=== PATIENT | female | born 1945 | race Caucasian/White ===

== ENCOUNTER 2021-03-25 13:53 | Outpatient (REF) | payer MEDICARE, MEDICAID, SELFPAY ==
--- NOTE | ~2021-03-25 | US_ITS ---
EXAMINATION: US DIAGNOSTIC ULTRASOUND BREAST, BILATERAL CLINICAL INFORMATION: Pain. COMPARISON: Mammography of same day and studies dating back to March 04, 2009. TECHNIQUE: Ultrasound of the breast is performed with real-time navarro scale imaging and color Doppler. FINDINGS: Targeted right breast ultrasound from 3:00 to 10:00 was performed. No abnormal cystic or solid mass identified. No region of abnormal distal sound shadowing seen. No edema within the tissues identified. Targeted left breast ultrasound from the 7:00 to 11:00 position did not demonstrate any abnormal cystic or solid mass. No region of abnormal distal sound shadowing. No edematous change within the tissue. Results are discussed with the patient at time of visit. US/US breast RT limited IMPRESSION: No specific mammographic and ultrasound evidence to suggest malignancy. ASSESSMENT: BI-RADS 1: Negative RECOMMENDATION: Routine annual mammography screening due in 12 months.
--- NOTE | ~2021-03-25 | MM_ITS ---
EXAMINATION: MM DIAGNOSTIC DIGITAL BREAST TOMOSYNTHESIS, bilateral. Bilateral targeted breast ultrasound CLINICAL INFORMATION: Right lateral breast pain for 2 months. Family history of breast cancer. The lifetime risk of breast cancer based on the Tyrer-Cuzick Model is 4.8%. COMPARISON: Mammography: April 26, 2020 and studies dating back to March 04, 2009 TECHNIQUE: Digital breast tomosynthesis is performed in both the craniocaudal and mediolateral oblique views along with computer-aided detection (CAD). Synthesized 2D images are generated from the tomosynthesis. Bilateral targeted breast ultrasound performed. FINDINGS: The breasts are almost entirely fatty (ACR BI-RADS breast composition Category a). There are no significant masses, abnormal calcifications, or other abnormalities. Targeted right breast ultrasound from 3:00 to 10:00 was performed. No abnormal cystic or solid mass identified. No region of abnormal distal sound shadowing seen. No edema within the tissues identified. Targeted left breast ultrasound from the 7:00 to 11:00 position did not demonstrate any abnormal cystic or solid mass. No region of abnormal distal sound shadowing. No edematous change within the tissue. Results are discussed with the patient at time of visit. MM/MM tomosynthesis diagnostic BI IMPRESSION: No specific mammographic and ultrasound evidence to suggest malignancy. ASSESSMENT: BI-RADS 1: Negative RECOMMENDATION: Routine annual mammography screening due in 12 months. This patient's information was entered into a reminder system with a target due date for their next mammogram.
--- NOTE | ~2021-03-25 | US_ITS ---
EXAMINATION: US DIAGNOSTIC ULTRASOUND BREAST, BILATERAL CLINICAL INFORMATION: Pain. COMPARISON: Mammography of same day and studies dating back to March 04, 2009. TECHNIQUE: Ultrasound of the breast is performed with real-time navarro scale imaging and color Doppler. FINDINGS: Targeted right breast ultrasound from 3:00 to 10:00 was performed. No abnormal cystic or solid mass identified. No region of abnormal distal sound shadowing seen. No edema within the tissues identified. Targeted left breast ultrasound from the 7:00 to 11:00 position did not demonstrate any abnormal cystic or solid mass. No region of abnormal distal sound shadowing. No edematous change within the tissue. Results are discussed with the patient at time of visit. US/US breast LT limited IMPRESSION: No specific mammographic and ultrasound evidence to suggest malignancy. ASSESSMENT: BI-RADS 1: Negative RECOMMENDATION: Routine annual mammography screening due in 12 months. .
== END 2021-03-25 13:54 | disposition home or self-care (01) ==
LOC: HO.MAMMO 13:53
PROVIDERS: PCP Family Medicine; Visit Provider Family Medicine
DX: N64.4 Mastodynia (principal)
CPT/HCPCS: 76642; 77062; 77066

== ENCOUNTER 2021-09-06 10:59 | Outpatient (REF) | payer MEDICARE, MEDICAID, SELFPAY ==
--- NOTE | ~2021-09-06 | MM_ITS ---
EXAMINATION: BONE DENSITOMETRY CLINICAL INDICATION: Osteoporosis. COMPARISON: Previous BD dated 08/06/2019 and baseline BD dated 01/29/2008. TECHNIQUE: Using a [employer] DXA System (software version: 13.1) manufactured by [employer], dual-energy x-ray absorptiometry was performed of the lumbar spine and left hip. The images are of good technical quality. Summary results are attached. FINDINGS: AP SPINE L1-L2 (excluding L3 and L4): The data of L1-L4 has been changed to exclude the L3 and L4 vertebral bodies, because hardware at these levels may cause overestimation of lumbar spine density. Current: BMD 0.654 g/cm2, Z-score -1.9, T-score -4.3, osteoporosis, 3.0% decrease from previous, 8.9% decrease from baseline (<5% change is not significant). Prior: BMD 0.674 g/cm2. Baseline: BMD 0.718 g/cm2. LEFT FEMUR, NECK: Current: BMD 0.595 g/cm2, Z-score -0.8, T-score -3.2, osteoporosis. Prior: BMD 0.736 g/cm2. Baseline: BMD 0.725 g/cm2. LEFT FEMUR, TOTAL: Current: BMD 0.643 g/cm2, Z-score -0.7, T-score -2.9, osteoporosis, 21.5% decrease from previous, 24.1% decrease from baseline (<5% change is not significant). Prior: BMD 0.819 g/cm2. Baseline: BMD 0.847 g/cm2. IDENTIFIED RISK FACTORS: Osteoporosis, height loss, history of fracture (adult). Hysterectomy, bilateral oophorectomy. Early menopause, secondary osteoporosis. HISTORY OF FRACTURE: Spine, shoulder. MEDICATIONS: Calcium supplements or multivitamin, vitamin D, calcitonin. MM/XR DEXA axial skeleton IMPRESSION: 1. DIAGNOSIS: Osteoporosis based on the lowest T-score value of -4.3 in the lumbar spine applying World Health Organization criteria. 2. 10-YEAR FRACTURE RISK PREDICTION, FRAX: According to the guidelines, FRAX calculation should only be performed on patients in the osteopenia bone density category. Therefore, FRAX was not performed on this patient. 3. Treatment Recommendations: NOF guidelines recommend consideration for treatment in postmenopausal women and men age 50 and older presenting with the following: -A hip or vertebral (clinical or morphometric) fracture. -T-score less than or equal to -2.5 at the femoral neck or spine after appropriate evaluation to exclude secondary causes. -Low bone mass at the hip or spine and a 10-year fracture probability by FRAX of greater than or equal to 3% for hip fracture or greater than or equal to 20% for major osteoporotic fracture based on the [place] adapted WHO algorithm. 4. Other Recommendations: All treatment decisions require clinical judgment and consideration of individual patient factors, including patient preferences, comorbidities, previous drug use, risk factors not captured in the FRAX model (e.g. frailty, falls, vitamin D deficiency, increased bone turnover, interval significant decline in bone density) and possible under or overestimation of fracture risk by FRAX. Additional medical evaluation for secondary cause of low bone mineral density may be appropriate. FUTURE SCAN RECOMMENDATION: People with diagnosed cases of osteoporosis or at high risk for fracture should have regular bone mineral density tests. For patients eligible for Medicare, routine testing is allowed once every 2 years. The testing frequency can be increased to one year for patients who have rapidly progressing disease, those who are receiving or discontinuing medical therapy to restore bone mass, or have additional risk factors.
== END 2021-09-06 11:00 | disposition home or self-care (01) ==
LOC: HO.MAMMO 10:59
PROVIDERS: PCP Family Medicine; Visit Provider Family Medicine
DX: Z13.820 Encounter for screening for osteoporosis (principal); Z78.0 Asymptomatic menopausal state; M81.0 Age-related osteoporosis without current pathological fracture; Z79.899 Other long term (current) drug therapy; Z87.81 Personal history of (healed) traumatic fracture
CPT/HCPCS: 77080

== ENCOUNTER 2022-04-05 11:11 | Outpatient (REF) | payer MEDICARE, MEDICAID, SELFPAY ==
--- NOTE | ~2022-04-05 | MM_ITS ---
EXAMINATION: MM SCREENING DIGITAL BREAST TOMOSYNTHESIS, BILATERAL CLINICAL INFORMATION: Screening. Asymptomatic. The lifetime risk of breast cancer based on the Tyrer-Cuzick Model is 6%. COMPARISON: Mammography: 03/25/2021, 04/26/2020, 04/21/2019 TECHNIQUE: Digital breast tomosynthesis is performed in both the craniocaudal and mediolateral oblique views along with computer-aided detection (CAD). Synthesized 2D images are generated from the tomosynthesis. FINDINGS: There are scattered areas of fibroglandular density (ACR BI-RADS breast composition Category b). There are no significant masses, abnormal calcifications, or other abnormalities. Parenchymal pattern is similar to prior studies. Breast tissue composition borders on predominantly fatty with exception of the anterior breasts. There is no developing density or architectural abnormality. The axilla and skin contours are unremarkable. No significant changes. MM/MM tomosynthesis screening BI IMPRESSION: No mammographic evidence of malignancy. ASSESSMENT: BI-RADS 1: Negative RECOMMENDATION: Routine annual mammography screening. This patient's information was entered into a reminder system with a target due date for their next mammogram.
== END 2022-04-05 11:12 | disposition home or self-care (01) ==
LOC: HO.MAMMO 11:11
PROVIDERS: Visit Provider Family Medicine
DX: Z12.31 Encounter for screening mammogram for malignant neoplasm of breast (principal)
CPT/HCPCS: 77063; 77067

== ENCOUNTER 2023-04-18 11:01 | Outpatient (REF) | payer MEDICARE, MEDICAID, SELFPAY | END 2023-04-18 11:02 | disposition home or self-care (01) | LOC: HO.MAMMO 11:01 | PROVIDERS: PCP Family Medicine; Visit Provider Family Medicine | DX: Z12.31 Encounter for screening mammogram for malignant neoplasm of breast (principal) | CPT/HCPCS: 77063; 77067 ==

== ENCOUNTER → 2023-04-18 11:15 | Outpatient (BNV) | payer MEDICARE, MEDICAID, SELFPAY | PROVIDERS: PCP Family Medicine; Visit Provider Radiology Diagnostic Radiology | DX: Z12.31 Encounter for screening mammogram for malignant neoplasm of breast (principal) | CPT/HCPCS: 77063; 77067 ==

== ENCOUNTER 2024-04-24 12:21 | Outpatient (REF) | payer MEDICARE, MEDICAID, SELFPAY ==
--- NOTE | ~2024-04-24 | MM_ITS ---
EXAMINATION: BONE DENSITOMETRY CLINICAL INDICATION: Osteoporosis. COMPARISON: Previous BD dated 09/06/2021 and baseline BD dated 01/29/2008. TECHNIQUE: Using a [employer] DXA System (software version: 13.1) manufactured by [employer], dual-energy x-ray absorptiometry was performed of the lumbar spine and left hip. The images are of good technical quality. Summary results are attached. FINDINGS: LEFT FEMUR, NECK: Current: BMD 0.614 g/cm2, Z-score -0.5, T-score -3.0, osteoporosis. Prior: BMD 0.595 g/cm2. Baseline: BMD 0.725 g/cm2. LEFT FEMUR, TOTAL: Current: BMD 0.738 g/cm2, Z-score 0.3, T-score -2.1, osteopenia, 14.8% increase from previous, 12.9% decrease from baseline (<5% change is not significant). Prior: BMD 0.643 g/cm2. Baseline: BMD 0.847 g/cm2. AP SPINE L1-L2 (excluding L3 and L4): The data of L1-L4 has been changed to exclude the L3 and L4 vertebral bodies, because hardware at these levels may cause overestimation of lumbar spine density. Current: BMD 0.619 g/cm2, Z-score -2.1, T-score -4.6, osteoporosis, 5.4% decrease from previous, 13.8% decrease from baseline (<5% change is not significant). Prior: BMD 0.654 g/cm2. Baseline: BMD 0.718 g/cm2. IDENTIFIED RISK FACTORS: Early menopause, secondary osteoporosis, hysterectomy, bilateral oophorectomy, osteoporosis, low calcium intake, history of fracture (adult), height loss. HISTORY OF FRACTURE: Shoulder. Spine. Other. MEDICATIONS: Calcium supplements or multivitamin, vitamin D, bisphosphonates. MM/XR DEXA axial skeleton IMPRESSION: 1. DIAGNOSIS: Severe osteoporosis based on the lowest T-score value of -4.6 in the lumbar spine and history of fracture applying World Health Organization criteria. 2. 10-YEAR FRACTURE RISK PREDICTION, FRAX: According to the guidelines, FRAX calculation should only be performed on patients in the osteopenia bone density category. Therefore, FRAX was not performed on this patient. 3. Treatment Recommendations: NOF guidelines recommend consideration for treatment in postmenopausal women and men age 50 and older presenting with the following: -A hip or vertebral (clinical or morphometric) fracture. -T-score less than or equal to -2.5 at the femoral neck or spine after appropriate evaluation to exclude secondary causes. -Low bone mass at the hip or spine and a 10-year fracture probability by FRAX of greater than or equal to 3% for hip fracture or greater than or equal to 20% for major osteoporotic fracture based on the [place] adapted WHO algorithm. 4. Other Recommendations: All treatment decisions require clinical judgment and consideration of individual patient factors, including patient preferences, comorbidities, previous drug use, risk factors not captured in the FRAX model (e.g. frailty, falls, vitamin D deficiency, increased bone turnover, interval significant decline in bone density) and possible under or overestimation of fracture risk by FRAX. Additional medical evaluation for secondary cause of low bone mineral density may be appropriate. FUTURE SCAN RECOMMENDATION: People with diagnosed cases of osteoporosis or at high risk for fracture should have regular bone mineral density tests. For patients eligible for Medicare, routine testing is allowed once every 2 years. The testing frequency can be increased to one year for patients who have rapidly progressing disease, those who are receiving or discontinuing medical therapy to restore bone mass, or have additional risk factors. Electronically signed by: Celeste Lang MD 05/06/2024 08:58 AM EDT
--- NOTE | ~2024-04-24 | MM_ITS ---
EXAMINATION: MM SCREENING DIGITAL BREAST TOMOSYNTHESIS, BILATERAL CLINICAL INFORMATION: Screening. Asymptomatic. COMPARISON: Mammography: Comparison is made with available priors TECHNIQUE: Digital breast mammography with tomosynthesis is performed in both the craniocaudal and mediolateral oblique views along with computer-aided detection (CAD). FINDINGS: There are scattered areas of fibroglandular density (ACR BI-RADS breast composition Category b). There are no significant masses, abnormal calcifications, or other abnormalities. MM/MM tomosynthesis screening BI IMPRESSION: No mammographic evidence of malignancy. ASSESSMENT: BI-RADS BI-RADS 1 - Negative RECOMMENDATION: Routine annual mammography screening. 1 year F/U This examination should not preclude the clinical evaluation of a suspicious palpable abnormality. This patient's information was entered into a reminder system with a target due date for their next mammogram. Electronically signed by: Jasmin Medina DO 05/06/2024 05:50 PM EDT
== END 2024-04-24 12:22 | disposition home or self-care (01) ==
LOC: HO.MAMMO 12:21
PROVIDERS: PCP Family Medicine; Visit Provider Family Medicine
DX: Z12.31 Encounter for screening mammogram for malignant neoplasm of breast (principal); M81.0 Age-related osteoporosis without current pathological fracture
CPT/HCPCS: 77063; 77067; 77080

== ENCOUNTER → 2024-04-24 12:45 | Outpatient (BNV) | payer MEDICARE, MEDICAID, SELFPAY | PROVIDERS: PCP Family Medicine; Visit Provider Internal Medicine | DX: Z12.31 Encounter for screening mammogram for malignant neoplasm of breast (principal) | CPT/HCPCS: 77063; 77067 ==

== ENCOUNTER 2024-05-16 18:18 | Emergency (ER) | payer MEDICARE, MEDICAID, SELFPAY ==
[2024-05-16] VITALS (7 sets, daily range): BP systolic 105–177; BP diastolic 42–76; PULSE 66–88; RESP 14–18; TEMP 36.6–37.1; O2SAT 96–98; BMI 18.9
--- NOTE | ~2024-05-16 | CT_ITS ---
EXAMINATION: CT ANGIOGRAM NECK AND NECK CLINICAL INFORMATION: Dizziness. COMPARISON: None available. TECHNIQUE: Precontrast noncontrast CT scan of the head obtained. Sequential axial contrast enhanced CT angiographic images of the neck and head. Sagittal and coronal reformatted images also obtained. The degree of stenosis determined by NASCET criteria. This CT examination was performed using dose optimization techniques as appropriate, variously including the following: *Automated exposure control *Adjustment of mA and/or kV according to patient size (this includes techniques or standardized protocols for targeted exams where dose is matched to indication/reason for exam; i.e. extremities or head) *Use of iterative reconstruction technique DLP: 1029 mGy-cm FINDINGS: CT HEAD: The lateral, third and fourth ventricles are normally outlined. The cortical sulci and basal cisterns are normally outlined as well. There is no acute territorial defect, hemorrhage or midline shift. There are surgical is seen along the anterior cerebral arteries. Calvarium/scalp: Intact. Maxillofacial sinuses and mastoids: Clear as visualized. CTA NECK: The visualized aortic arch is within normal limits. A three-vessel branch pattern from the aortic arch is noted. The aortic arch branch vessels are patent. Common carotid arteries are patent. There is mild atherosclerotic plaque of the carotid bifurcation without significant narrowing. The internal and external carotid arteries are patent. The vertebral arteries are codominant. Both vertebral arteries are patent. CTA HEAD: There is mild atherosclerotic plaque of the intracranial internal carotid arteries without significant narrowing. The anterior and middle cerebral arteries are patent. The distal vertebral arteries, basilar artery and branches and posterior cerebral arteries are patent. 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 Cervical disc degenerative change with reversal of the expected cervical spine curvature. CT/CT angio head neck IMPRESSION: 1. No acute territorial infarct or hemorrhage. 2. No large vessel occlusion. 3. 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 Electronically signed by: Abraham Adan MD 05/17/2024 01:57 AM EDT
[2024-05-16 18:27] LABS: Prothrombin Time Whole Bld POC 10.7 sec (11.1-13.5); ~PT, ~INR - Anti Coag Clinic 0.9 (0.9-1.1)
[2024-05-16 18:29] LABS: Glucose, Whole Blood 99 mg/dL (60-115)
--- NOTE | 2024-05-16 18:29 | ECG_ITS ---
Test Reason : DIZZINESS Blood Pressure : / mmHG Vent. Rate : 071 BPM Atrial Rate : 071 BPM P-R Int : 172 ms QRS Dur : 090 ms QT Int : 402 ms P-R-T Axes : 061 -45 027 degrees QTc Int : 436 ms Normal sinus rhythm Left anterior fascicular block Possible Lateral infarct , age undetermined Abnormal ECG When compared with ECG of 28-MAR-2006 17:46, Borderline criteria for Lateral infarct are now Present Referred By: Courtney Claudio Electronically Signed By:KEYUR JOHNSTON
--- NOTE | 2024-05-16 18:31 | PC.NURSE ---
Per Remy Claudio MD, pt. is not a stroke protocol.
--- NOTE | 2024-05-16 18:31 | PC.NURSE ---
Pt. now in room ED 6
--- NOTE | 2024-05-16 18:35 | PC.NURSE ---
Pt. reports that she has not eaten all day. POC = 99
--- NOTE | 2024-05-16 18:41 | ED.NEUROSD ---
HPI - Neuro Symptoms/Deficit General Chief Complaint: Neuro Symptoms/Deficit Stated Complaint: INCREASED CONFUSION Time Seen by Provider: 05/16/24 18:28 Source: patient and EMS Mode of arrival: EMS Limitations: no limitations History of Present Illness ED Provider: Dr. Courtney Claudio HPI Narrative: Patient comes to the emergency room reporting that she has been having dizziness intermittently for couple of days. Patient states that about 1 hour prior to arrival, patient noted that the room was spinning, patient felt a bit confused, had trouble finding words, it self-resolved. By the time that EMS arrived to the patient's residence, patient had no neurological deficits. Here in the ED, patient states that she does not feel quite right, states that she has numbness tingling ?from head to toe? on both sides, denies any chest pain or shortness of breath, no headache. Patient is speaking with clear normal speech. Patient states that recently she was prescribed oxycodone for sciatica pain, started 3 days ago. Related Data Allergies Allergy/AdvReac Type Severity Reaction Status Date / Time aspirin [Aspirin] Allergy Mild NAUSEA Verified 05/16/24 18:26 VOMITING duloxetine [From CYMBALTA] Allergy Unknown UNKNOWN Verified 05/16/24 18:26 hydrocodone [HYDROCODONE] Allergy Unknown UNKNOWN Verified 05/16/24 18:26 metaxalone [METAXALONE] Allergy Unknown UNKNOWN Verified 05/16/24 18:26 pregabalin [From LYRICA] Allergy Unknown UNKNOWN Verified 05/16/24 18:26 gabapentin [GABAPENTIN] AdvReac Intermediate DROWSY Verified 05/16/24 18:26 ibuprofen [IBUPROFEN] AdvReac Intermediate NAUSEA/VOMI Verified 05/16/24 18:26 TING Review of Systems Review of Systems: Constitutional : No Weight loss, No Fever, No Chills, No Night Sweats, No Fatigue, No Malaise ENT/Mouth : No Hearing loss, No Ear Pain, No Nasal Congestion, No Sinus Pain, No Hoarseness, No sore throat, No Rhinorrhea, No Swallowing Difficulty Eyes: No Eye Pain, No Swelling, No Redness, No Foreign Body, No Discharge, No Vision Changes Cardiovascular : No Chest Pain, No SOB, No Dyspnea on Exertion, No Orthopnea, No Edema, No Palpitations Respiratory : No Cough, No Sputum, No Wheezing, No Smoke Exposure, No Dyspnea Gastrointestinal : No Nausea, No Vomiting, No Diarrhea, No Constipation, No abdominal Pain, No Hematochezia, No Melena Genitourinary : no irregular bleeding, No Dysuria, No Urinary Frequency, No Hematuria, No Urinary Incontinence, No Urgency, No Flank Pain, No Urinary Flow Changes, No Hesitancy Musculoskeletal : No joint pain, No Myalgias, No Joint Swelling Skin : No Skin Lesions, No rash Neuro : No Weakness, No Numbness, No Paresthesias, No Loss of Consciousness, complaining of dizziness/room spinning intermittently, not at this time, complaining of numbness and tingling from head to toe on both sides Psych : No Anxiety/Panic, No Depression, No SI/HI/AH/VH, No Social Issues, Heme/Lymph: No Bruising, No Bleeding,No Lymphadenopathy Endocrine : No Polyuria, No Polydipsia, No Temperature Intolerance [facility] Past Medical History Medical History (Updated 05/17/24 @ 01:42 by Courtney Claudio MD) Sciatica Social History Social History Smoked in Last 30 Days: No Use of substances other than those prescribed or required for medical reasons: No Advance Directives: No Advance Directives Information Provided: Yes Physical Exam Vital Signs: Vital Signs: Last Vital Signs Temp 98.6 F 05/16/24 23:23 Pulse 75 05/16/24 23:23 Resp 14 05/16/24 23:23 BP 105/55 L 05/16/24 23:23 Pulse Ox 98 05/16/24 23:23 O2 Del Method Room Air 05/16/24 23:23 BMI result Body Mass Index 18.9 Const: Other: Appearance: Alert. Oriented X3. No acute distress. Eyes: Pupils equal, round and reactive to light. ENT: Pharynx normal. Neck: Normal inspection. Neck supple. No lymph nodes noted. No crepitus CVS: Normal heart rate and rhythm. Pulses normal. Normal S1 and S2 Respiratory: No respiratory distress. Breath sounds normal. No Wheezing. No rales Abdomen: Soft and nontender. No rigidity. No distention. Skin: Skin warm and dry. Normal skin color. Normal skin turgor. Extremities: No lower extremity edema. No Lacerations. No Rash Neuro: Oriented X 3. No motor deficit. No sensory deficit. Moving all extremities. No slurred speech. CN 2 through 12 grossly intact, strength 5/5 in both upper and lower extremities, no mouth drooping, no drift Psych: calm, cooperative, normal affect Course Course Course Narrative: -at this time of arrival, patient's NIH score is 0. Patient denies any dizziness chest pain or shortness of breath. No focal deficit. -all of patient's labs pending, CT scan pending. It is possible that patient has symptoms are likely secondary to oxycodone which is a new medication for the patient. Medications Administered Discontinued Medications Generic Name Dose Route Start Last Admin Trade Name Javier PRN Reason Stop Dose Admin Iohexol 65 ml 05/16/24 20:03 05/16/24 20:03 Iohexol 350 Mg/Ml 100 Ml Infus..Btl IV 05/16/24 20:04 65 ml ONCE ONE Administration Medical Decision Making Medical Decision Making [facility] Narrative: -my interpretation of labs, normal hematology, normal chemistry, troponins negative, LFTs normal urinalysis negative for UTI, urine toxicology positive for oxycodone which she gets prescribed and marijuana. ETOH negative. -CTA of the head and neck pending -patient was able to ambulate by herself without any assistance with steady gait. -at this time, 01:45, patient's CTA has not been read by Radiology yet. -my interpretation of CT scan of the head and neck, no obvious abnormality. -radiology report, aneurysm coils are seen, no large vessel occlusion or territorial infarct or hemorrhage -patient's urinalysis positive for oxycodone which she gets prescribed, and also positive for THC. Patient is surprised that she tested positive for THC. However, patient states that earlier today a friend of hers gave her a gummy telling her that she would feel better. However, patient was not aware that this was THC. This is the 1st time and quite possibly the last time that the patient uses THC gummies. Patient states that she feels almost back to baseline -patient's daughter will be picking her up and taking her for overnight Differential Diagnosis Differential Diagnoses: The differential diagnosis associated with the presentation includes (Stroke, vertigo, medication side-effect) Admission/Observation Consideration of admission/observation: Escalation of care including admission/observation considered (Given patient's initial symptoms and presentation, observation/admission was considered) Lab Data [facility] Lab Attestation statement: I reviewed the patient's lab results. 05/16/24 18:53 05/16/24 18:53 Labs: Lab Results 05/16/24 05/16/24 05/16/24 Range/Units 18:22 18:23 18:53 WBC 7.7 (4.8-10.8) X10*3/uL RBC 4.10 L (4.20-5.50) X10*6/uL Hgb 12.7 (12.0-16.0) g/dl Hct 39.3 (37.0-47.0) % MCV 95.9 (80.0-98.0) fL MCH 31.0 (27.0-33.0) pg MCHC 32.3 (31.0-35.0) g/dl RDW 12.6 (11.0-16.0) % Plt Count 343 (160-400) X10*3/uL MPV 9.0 L (9.4-12.3) fL Immature Gran % (Auto) 0.3 (0.0-0.4) % Neut % (Auto) 67.5 (45-73) % Lymph % (Auto) 23.6 (20-40) % [place] % (Auto) 6.0 (2-11) % Eos % (Auto) 2.1 (0-4) % Baso % (Auto) 0.5 (0-2) % Lymph # (Auto) 1.8 (1.2-4.9) X10*3/uL [place] # (Auto) 0.5 (0.1-1.2) X10*3/uL Eos # (Auto) 0.2 (0.0-0.4) X10*3/uL Baso # (Auto) 0.0 (0.0-0.2) X10*3/uL Abs Immat Gran (auto) 0.02 (0.00-0.03) X10*3/uL Absolute Neuts (auto) 5.2 (2.0-8.3) x10*3/uL Absolute Nucleated RBC 0.000 (0.0-0.012) X10*3/uL Nucleated RBC % (auto) 0.0 (0.0-0.2) /100WBC Whole Blood PT 10.7 L (11.1-13.5) sec Whole Blood INR 0.9 (0.9-1.1) Sodium 143 (135-145) mmol/L Potassium 4.4 (3.3-5.1) mmol/L Chloride 107 (96-108) mmol/L Carbon Dioxide 27 (22-29) mmol/L Anion Gap 13 (12-20) BUN 26 H (9-16) mg/dL Creatinine 0.94 (0.5-1.4) mg/dL Estim Creat Clear Calc 37.6 Estimated GFR 58 POC Glucose 99 (60-115) mg/dL Random Glucose 112 (60-115) mg/dL Calcium 9.8 (8.4-10.2) mg/dL Magnesium 2.1 (1.6-2.6) mg/dL Total Bilirubin 0.3 (0.0-1.0) mg/dL Direct Bilirubin 0.2 (0.0-0.5) mg/dL AST 28 (5-31) U/L ALT 14 (0-31) U/L Alkaline Phosphatase 72 (39-117) U/L Troponin I High Sens 2.8 (<3.5-17.0) ng/L Total Protein 6.6 (6.5-8.0) g/dL Albumin 4.1 (3.5-5.0) g/dL Urine Color Urine Appearance Urine pH (5.0-9.0) Ur Specific [place] (1.005-1.025) Urine Protein (Neg-Trace) mg/dL Urine Glucose (UA) (Negative) mg/dL Urine Ketones (Negative) mg/dL Urine Blood (Negative) Urine Nitrite (Negative) Ur Leukocyte Esterase (Negative) Urine RBC (0-2) /HPF Urine WBC (0-5) /HPF Ur Squamous Epith Cells (0-2) /HPF Urine Bacteria (None Seen) Hyaline Casts (0-2) /LPF Urine Opiates Screen (Not Detect) Ur Buprenorphine Scrn (Not Detect) ng/mL Ur Oxycodone Screen (Not Detect) ng/mL Urine Methadone Screen (Not Detect) ng/mL Urine Fentanyl Screen (Not Detect) Ur Barbiturates Screen (Not Detect) Ur Phencyclidine Scrn (Not Detect) Ur Amphetamines Screen (Not Detect) U Benzodiazepines Scrn (Not Detect) Urine Cocaine Screen (Not Detect) U Marijuana (THC) Screen (Not Detect) Ethyl Alcohol < 10 mg/dL 05/16/24 Range/Units 21:57 WBC (4.8-10.8) X10*3/uL RBC (4.20-5.50) X10*6/uL Hgb (12.0-16.0) g/dl Hct (37.0-47.0) % MCV (80.0-98.0) fL MCH (27.0-33.0) pg MCHC (31.0-35.0) g/dl RDW (11.0-16.0) % Plt Count (160-400) X10*3/uL MPV (9.4-12.3) fL Immature Gran % (Auto) (0.0-0.4) % Neut % (Auto) (45-73) % Lymph % (Auto) (20-40) % [place] % (Auto) (2-11) % Eos % (Auto) (0-4) % Baso % (Auto) (0-2) % Lymph # (Auto) (1.2-4.9) X10*3/uL [place] # (Auto) (0.1-1.2) X10*3/uL Eos # (Auto) (0.0-0.4) X10*3/uL Baso # (Auto) (0.0-0.2) X10*3/uL Abs Immat Gran (auto) (0.00-0.03) X10*3/uL Absolute Neuts (auto) (2.0-8.3) x10*3/uL Absolute Nucleated RBC (0.0-0.012) X10*3/uL Nucleated RBC % (auto) (0.0-0.2) /100WBC Whole Blood PT (11.1-13.5) sec Whole Blood INR (0.9-1.1) Sodium (135-145) mmol/L Potassium (3.3-5.1) mmol/L Chloride (96-108) mmol/L Carbon Dioxide (22-29) mmol/L Anion Gap (12-20) BUN (9-16) mg/dL Creatinine (0.5-1.4) mg/dL Estim Creat Clear Calc Estimated GFR POC Glucose (60-115) mg/dL Random Glucose (60-115) mg/dL Calcium (8.4-10.2) mg/dL Magnesium (1.6-2.6) mg/dL Total Bilirubin (0.0-1.0) mg/dL Direct Bilirubin (0.0-0.5) mg/dL AST (5-31) U/L ALT (0-31) U/L Alkaline Phosphatase (39-117) U/L Troponin I High Sens (<3.5-17.0) ng/L Total Protein (6.5-8.0) g/dL Albumin (3.5-5.0) g/dL Urine Color Yellow Urine Appearance Clear Urine pH 6.0 (5.0-9.0) Ur Specific [place] >= 1.030 H (1.005-1.025) Urine Protein Negative (Neg-Trace) mg/dL Urine Glucose (UA) Negative (Negative) mg/dL Urine Ketones Negative (Negative) mg/dL Urine Blood Negative (Negative) Urine Nitrite Negative (Negative) Ur Leukocyte Esterase Trace H (Negative) Urine RBC 0-2 (0-2) /HPF Urine WBC 11-20 H (0-5) /HPF Ur Squamous Epith Cells 0-2 (0-2) /HPF Urine Bacteria None Seen (None Seen) Hyaline Casts 0-2 (0-2) /LPF Urine Opiates Screen Not Detected (Not Detect) Ur Buprenorphine Scrn Not Detected (Not Detect) ng/mL Ur Oxycodone Screen Positive H (Not Detect) ng/mL Urine Methadone Screen Not Detected (Not Detect) ng/mL Urine Fentanyl Screen Not Detected (Not Detect) Ur Barbiturates Screen Not Detected (Not Detect) Ur Phencyclidine Scrn Not Detected (Not Detect) Ur Amphetamines Screen Not Detected (Not Detect) U Benzodiazepines Scrn Not Detected (Not Detect) Urine Cocaine Screen Not Detected (Not Detect) U Marijuana (THC) Screen POSITIVE H (Not Detect) Ethyl Alcohol mg/dL Independent Interpretation I performed an independent interpretation of an: CT Scan Radiology Impression Discussion of test interpretation with radiology: I have reviewed the radiologist's reading. Radiologist Impression: CT HEAD: The lateral, third and fourth ventricles are normally outlined. The cortical sulci and basal cisterns are normally outlined as well. There is no acute territorial defect, hemorrhage or midline shift. There are surgical is seen along the anterior cerebral arteries. Calvarium/scalp: Intact. Maxillofacial sinuses and mastoids: Clear as visualized. CTA NECK: The visualized aortic arch is within normal limits. A three-vessel branch pattern from the aortic arch is noted. The aortic arch branch vessels are patent. Common carotid arteries are patent. There is mild atherosclerotic plaque of the carotid bifurcation without significant narrowing. The internal and external carotid arteries are patent. The vertebral arteries are codominant. Both vertebral arteries are patent. CTA HEAD: There is mild atherosclerotic plaque of the intracranial internal carotid arteries without significant narrowing. The anterior and middle cerebral arteries are patent. The distal vertebral arteries, basilar artery and branches and posterior cerebral arteries are patent. 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 Cervical disc degenerative change with reversal of the expected cervical spine curvature. CT/CT angio head neck IMPRESSION: 1. No acute territorial infarct or hemorrhage. 2. No large vessel occlusion. 3. 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 Independent Historian Clinical information obtained from an independent historian. History obtained from or confirmed by: EMS NIH Stroke Scale Internal: Initial- Upon Arrival Level of Consciousness: Alert Level of Consciousness Questions: Answers both questions correctly Level of Consciousness Commands: Performs both tasks correctly Best Gaze: Normal Visual: No visual loss Facial Palsy: Normal Motor Arm (Right): No drift Motor Arm (Left): No drift Motor Leg (Right): No drift Motor Leg (Left): No drift Limb Ataxia: Absent Sensory: Normal Best Language: No aphasia Dysarthia: Normal Extinction and Inattention: No abnormality Score: 0 Critical Care Time Critical Care Time Critical Care Time: Yes Total Critical Care Time: 75 Attestation: I have personally provided critical care time. Time includes review of lab data, radiology results, discussion with consultants, and monitoring for potential decompensation. Intervention performed as documented. Discharge Plan Discharge Clinical Impression: Side effect of drug, Dizziness Patient Disposition: Home, Self-Care Instructions: Dizziness (ED) Additional Instructions: Please follow-up with your primary care physician tomorrow. If you have any worsening or new symptoms, please return to the emergency room or call 911 Print Language: Syriac
[2024-05-16 19:03] LABS: MANUAL DIFF FLAG NO
[2024-05-16 19:04] LABS: Basophils Percent Auto 0.5 % (0-2); Eosinophils Absolute Auto 0.2 X10*3/uL (0.0-0.4); Eosinophils Percent Auto 2.1 % (0-4); Hematocrit 39.3 % (37.0-47.0); Hemoglobin 12.7 g/dl (12.0-16.0); Imm Gran Abs Auto 0.02 X10*3/uL (0.00-0.03); Imm Gran Pct Auto 0.3 % (0.0-0.4); Lymphocytes Absolute Auto 1.8 X10*3/uL (1.2-4.9); Lymphocytes Percent Auto 23.6 % (20-40); Mean Corpuscular HGB Conc 32.3 g/dl (31.0-35.0); Mean Corpuscular Volume 95.9 fL (80.0-98.0); Monocytes Absolute Auto 0.5 X10*3/uL (0.1-1.2); Neutrophils Absolute Auto 5.2 x10*3/uL (2.0-8.3); Neutrophils Percent Auto 67.5 % (45-73); Platelet Count 343 X10*3/uL (160-400); Red Cell Distribution Width 12.6 % (11.0-16.0); White Blood Count 7.7 X10*3/uL (4.8-10.8)
--- OUTSIDE RECORDS SUMMARY | 2024-05-16 19:20 | XMS_ITS ---
[facility] Address [address] [place] [address] Care Team Providers Care Porter Bath Name Role Phone Margy Collado Primary Care Provider Unavailab Tomy Benz Unavailable [phone] ALLERGIES Allergen (clinical drug ingredient) Drug/Non Drug Allergy documented on EMR Reaction Allergy Type Onset Date Status ibuprofen Advil nausea Drug Allergy Active naproxen Aleve nausea Drug Allergy Active aspirin Aspirin nausea Drug Allergy Active duloxetine Cymbalta can't walk Drug Allergy Activ e pregabalin Lyrica sleepy Drug Allergy Active Motrin nausea Drug Allergy Active topiramate Topiramate head pain Drug Allergy Activ e REASON FOR VISIT At Risk Footcare, Painful Nail(s) aggrevated by shoes and causing difficulty standing/walking., Wart(s) MEDICATIONS Medication SIG (Take, Route, Frequency, Duration) Notes Start Date End Date Status Simvastatin 10 MG 1 tablet in the even ing Orally Once a day for 30 day(s) Active Omeprazole Active [place] 3 Active ProAir HFA Active Prevagen Active Gabapentin Active Fish Oil Active Lidocaine & Adhesive Sheet 5 % (Patch) as directed Externally Active Multivitamin Active Montelukast Sodium A ctive Citracal +D3 Active CoQ10 400 MG 1 capsule with a jose l l Orally Once a day for 30 day(s) Active Aspirin Active Breo Ellipta Active Biotin 7500 Active Ambien Active Plavix Not-Taking Jessica PRN Active Alendronate Sodium A ctive Ammonium Lactate 12 % 1 application to affected area Externally to feet Twice a day for 30 days Active Magnesium Not-Taking Anoro Ellipta 62.5-25 MCG/INH Inhalation Once a day Not-Ta Flexeril 5 MG 1 tablet Orally Thre e times a day for 30 day(s) Not-Taking Citracal Plus Not-Ta Zetia 5 mg 1 tablet Orally Once a day Not-Taking Ipratropium [place] Not-Taking Calcitonin ([place]) Not-Taking Ativan 0.5 MG 1 tablet at bedtime as needed Orally Once a day PRN Not-Taking Topamax 50 MG Orally Not-Ta Percocet 5-325 MG 1 tablet as needed Orally every 6 hrs PRN Not-Taking Vitamin B12 Active Vitamin C Active Vitamin D3 Active SOCIAL HISTORY Tobacco Use: Social History Observation Description Date Details (start date - stop date) Former Smoker NA - NA Sex Assigned At : Social History Observation Description Sex Assigned At Unknown Tobacco Use/Smoking Question Answer Notes Are you a: former smoker Additional Findings: Tobacco Non-User Current no n-smoker Alcohol Screen Question Answer Notes Did you have a drink containing alcohol in the p ast year? No Points 0 Interpretation Negative Tobacco use other than smoking: Question Answer Notes Are you an other tobacco user? No VITAL SIGNS Height 4 ft 10 in in 12/07/2023 Weight 103.8 lbs 12/07/2023 BMI 21.69 kg/m2 12/07/2023 PROCEDURES Procedure Date Ordered Date Performed Result Body Sit e 25956-FTYKIZU NAIL, 6 OR MORE 12/07/2023 N/A 28444-Ydes Destruction, 1-14 12/07/2023 N/A 44139-ZVXP SKIN LESIONS, 2 TO 4 12/07/2023 N/A Encounters Encounter Location Date Provider Diagnosis [facility] [address] [place] [address] 12/07/2023 Tomy Messina Atherosclerosis of algaaciq artery of both lower extremities, with unspecified presence of clinical manifestation I70.203 ; Tinea unguium B35.1 ; Pain in right toe(s) M79.674 ; Pain in left toe(s) M79.675 ; Plantar wart B07.0 and Left foot pain M79.672 ASSESSMENTS Encounter Date Diagnosis Assessment Notes Treatment Notes Treatment Clinical Notes 12/07/2023 Atherosclerosis of algaaciq artery of both lower extremities, with unspecified presence of clinical manifestation (ICD-10 - I70.203) 12/07/2023 Tinea unguium (ICD-1 0 - B35.1) 12/07/2023 Pain in right toe(s) (ICD-10 - M79.674) 12/07/2023 Pain in left toe(s) (ICD-10 - M79.675) 12/07/2023 Plantar wart (ICD-10 - B07.0) 12/07/2023 Left foot pain (ICD- 10 - M79.672) PLAN OF TREATMENT Pending Test Test Name Order Date 20755-UREZRIN NAIL, 6 OR MORE 12/07/2023 06541-Fyql Destruction, 1-14 12/07/2023 39789-MNSH SKIN LESIONS, 2 TO 4 12/07/19 24 Next Appt Details Follow Up: prn, Reason: Provider Name:Tomy Messina , 06/10/2024 11:00:00 AM, [address] [place] [address], [id number], Procedure Notes * Category Sub-Category Detail Notes Wart Treatment Procedure Verrucae(s) were debrided to pin-point bleeding margins with sterile surgical blade, silver nitrate chemocautery applied, recomm. immune-boosting meds such as zinc, recomm. follow up with topical chemosurgical agents, Pt defers any other forms of tx (12615) Debride Nail 6-10 Nail debridement Nail debridem ent performed extensively to reduce/remove overall nail length and girth, subungual debris, and necrotic tissue, by manual and electrical means with use of a nail nipper and/or dremel, to more viable healthy nail plate or bed tissue 6-10. Silver nitrate used for any petechial bleeding as necessary. Patient chooses, no pharmaceutical tx (10415) Keratoma Treatment Parring or Cutting o f Benign Hyperkeratotic Lesion(s) 64238 (2-4 Lesions) - The Benign hyperkeratotic lesions, as described above were pared, and/or cut utilizing a sterile #15 blade, tissue nippers, and/or dremel , Q8 Progress Notes * Examination Category Sub-Category Detail Notes Dermatologic SKIN FINDINGS: Skin exam reveal s Keratotic lesion(s) located at , Medial plantar, IPJ, TA, Medial plantar, IPJ, T5, Heel(s) , B/L VERRUCA: Reveals a Single , m ulti-loculated , mosaically patterned, round, raised, flat-topped, petechial bleeding papule(s), with cauliflower appearance and interruption of skin lines, pain to lateral compression, and size estimated at 3mm diameter, plantar Forefoot, LEFT, 3rd toe Vascular DP PULSES(B): 1/4, B/L PT PULSES(B): 0/4, B/L CAPILLARY FILL TIME: delayed, all digits , B/L TEMPERTURE GRADIENT(C): decreased, cool to cool, proximal to distal, B/L TROPHIC CONDITION-TEXTURE/ELASTICITY/TURGOR/HAIR GROWTH(B): decreased, B/L EDEMA(C): absent, B/L PIGMENTATION: mottled, rubrous, B/ L Nails NAILS are: Elongated, overg rown, dystrophic, lytic, greater than 3mm thick, discolored and friable with crumbly malodorous subungual debris, with pain on palpation, 1-5 B/L History and Physical Notes * HPI (History of Present Illness) Category Sub-Category Detail Notes At Risk footcare Pt States Last PCP Visit: Date: 09/17
--- OUTSIDE RECORDS SUMMARY | 2024-05-16 19:20 | XMS_ITS | Continuity of Care Document ---
Author Organization [facility] Address [address] [place] [address]- Care Team Providers Care Optics Manufacturing Technician Name Role Phone Margy Collado MD Primary Care Physician Encounter [facility] [place] Date(s): 12/12/19 - 04/17/20 [facility] [address] [place] [address]- [facility] Attending Physician: Romelia Faith NP Admitting Physician: Romelia Faith NP Referring Physician: Margy Collado MD Allergies, Adverse Reactions, Alerts Substance Reaction Severity Status ciprofloxacin UNKNOWN Active codeine NAUSEA Active cefadroxil UNKNOWN Active aspirin FULL DOSE NAUSEA Active metaxalone nausea Active gabapentin DIZZINESS Active Motrin VOMITING Active Cymbalta DIZZINESS Active Lyrica UNKNOWN Active HYDROcodone rash/itching Active Medications aspirin 81 mg oral tablet 1 tablet = 81 mg, By Mouth, Daily, # 30 tablet, 0 Refills, Maintenance, Tablet Start Date: 01/02/12 Status: Ordered Biotin = 7,500 mcg, By Mouth, Daily, 0 Refills, Maintenance, 03/25/15 7:27:10 EDT Start Date: 03/25/15 Status: Ordered Breo Ellipta 100 mcg-25 mcg/inh inhalation powder 1 puffs, Inhalation, Daily, # 30 each, 0 Refills, Maintenance, 05/07/18 11:21:33 EDT, Powder Start Date: 05/07/18 Status: Ordered citraceal calcium citrate citraceal calcium citrate, 1 TAB, By Mouth, 2 times a day, Refills 0, Maintenance, 04/04/16 10:57:23 EDT, [place] Start Date: 04/04/16 Status: Ordered CoQ10 400, By Mouth, Daily, 0 Refills, Maintenance, 03/25/15 7:26:39 Start Date: 03/25/15 Status: Ordered Fish Oil = 1,200 mg, By Mouth, Daily, 0 Refills, Maintenance, 03/25/15 7:27:58 EDT Start Date: 03/25/15 Status: Ordered fluticasone 50 mcg/inh nasal spray 2 sprays, Nares, Both, Daily at bedtime, 0 Refills, Maintenance, 05/07/18 11:21:56 EDT, [place] Start Date: 05/07/18 Status: Ordered montelukast 10 mg oral tablet 10 mg, 1, tablet, By Mouth, Daily in PM, # 30 tablet, Refills 0, Maintenance, 05/07/18 11:22:07 EDT Start Date: 05/07/18 Status: Ordered Omeprazole = 20 mg, By Mouth, Daily, 0 Refills, Maintenance, 03/25/15 7:26:07 Start Date: 03/25/15 Status: Ordered ProAir HFA 90 mcg/inh inhalation aerosol with adapter 1, puffs, Inhalation, Every 4 hours, PRN, # 8.5 Gm, Refills 0, Maintenance, 05/07/18 11:21:15 EDT, Aerosol Start Date: 05/07/18 Status: Ordered senior multivitamin senior multivitamin, 1 TAB, By Mouth, Daily, Refills 0, Maintenance, 04/04/16 10:56:46 EDT, [place] Start Date: 04/04/16 Status: Ordered simvastatin 10 mg oral tablet 1 tablet = 10 mg, By Mouth, Daily at bedtime, # 30 tablet, 0 Refills, Maintenance, Tablet Start Date: 07/03/13 Status: Ordered Topamax 50 mg oral tablet 1 tablet = 50 mg, By Mouth, Daily at bedtime, 0 Refills, Maintenance, 07/05/17 10:59:42 EST Start Date: 07/05/17 Status: Ordered Vitamin B12 1000 mcg oral tablet 1 tablet = 1,000 mcg, By Mouth, Daily, # 30 tablet, 0 Refills, Maintenance, 05/07/18 11:21:26 EDT, Tablet Start Date: 05/07/18 Status: Ordered Vitamin C = 500 mg, By Mouth, Daily, 0 Refills, Maintenance, 03/25/15 7:29:07 Start Date: 03/25/15 Status: Ordered Zetia 10 mg oral tablet = 5 mg, By Mouth, Daily at bedtime, # 30 tablet, 0 Refills, Maintenance, 07/03/13 10:40:31 EST, Tablet Start Date: 07/03/13 Status: Ordered Problem List Condition Effective Dates Status Health Status Inform ant Memory loss(Confirmed) Active Carotid artery stenosis(Confirmed) Active Ex-smoker(Confirmed) Active Chronic GERD(Confirmed) Active 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
--- OUTSIDE RECORDS SUMMARY | 2024-05-16 19:20 | XMS_ITS | Continuity of Care Document ---
Author Organization [facility] Address [address] [place] [address]- Care Team Providers Care Command Post Craftsman Name Role Phone Tobias AGUILAR, Margy Flores Primary Care Physician Encounter [facility] [place] Date(s): 04/27/22 - 05/27/22 [facility] [address] [place] [address]- Attending Physician: Dale Lr Admitting Physician: Dale Lr Referring Physician: AdmtrDale Allergies, Adverse Reactions, Alerts Substance Reaction Severity Status ciprofloxacin UNKNOWN Active aspirin FULL DOSE NAUSEA Active Lyrica UNKNOWN Active codeine NAUSEA Active cefadroxil UNKNOWN Active metaxalone nausea Active HYDROcodone rash/itching Active gabapentin DIZZINESS Active Motrin VOMITING Active Cymbalta DIZZINESS Active Medications aspirin 81 mg oral tablet [...] bedtime, 0 Refills, Maintenance, 05/07/18 11:21:56 EDT, [place] Start Date: 05/07/18 Status: Ordered montelukast 10 [...] Date: 07/03/13 Status: Ordered Problem List Condition Confirmation Course Effective Dates Status Health St [facility] Informant Memory loss Confirmed Active Carotid artery stenosis Confirmed Active Ex-smoker Confirmed Active Chronic GERD Confirmed Active 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
--- OUTSIDE RECORDS SUMMARY | 2024-05-16 19:20 | XMS_ITS | Continuity of Care Document ---
Author Organization [facility] Address [address] [place] [address]- Care Team Providers Care Adjunct Faculty Name Role Phone Tobias AGUILAR, Margy Flores Primary Care Physician [phone] Encounter [facility] [place] Date(s): 04/30/23 - 05/30/23 [facility] [address] [place] [address]- Attending Physician: Dale Lr Admitting Physician: Dale [...] bedtime, 0 Refills, Maintenance, 05/07/18 11:21:56 EDT, [place] Start Date: 05/07/18 Status: Ordered montelukast 10 [...] on: 05/15/18 Sex Patient Care team information Care Team Personnel Name: Margy Collado MD Position: [facility] Outreach Member Role: PCP Address: Address: [address] [place] [address]- Care Team Related Persons Name: ELY BEJARANO Address: [place] [address]
--- OUTSIDE RECORDS SUMMARY | 2024-05-16 19:20 | XMS_ITS | Continuity of Care Document ---
Author Organization [facility] Address [address] [facility], [address]r d Floor, [address] [place] [address]- Care Team Providers Care Image Assembler Name Role Phone Tobias AGUILAR, Margy Flores Primary Care Physician Encounter [facility] [place] Date(s): 04/13/20 - 05/13/20 [facility] [address] [place], [address]rd Floor, [address] [place] [address]- [facility] Attending Physician: Dale Lr Admitting Physician: AdmtrDale Referring Physician: Admtr, Ar8 Allergies, Adverse Reactions, Alerts Substance Reaction Severity Status ciprofloxacin UNKNOWN Active cefadroxil UNKNOWN Active aspirin FULL DOSE NAUSEA Active Lyrica UNKNOWN Active codeine NAUSEA Active metaxalone nausea Active HYDROcodone rash/itching Active [...] bedtime, 0 Refills, Maintenance, 05/07/18 11:21:56 EDT, [place] Start Date: 05/07/18 Status: Ordered montelukast 10 [...]
--- OUTSIDE RECORDS SUMMARY | 2024-05-16 19:20 | XMS_ITS | Continuity of Care Document ---
Author Organization [facility] Address [address] [place] [address]- Care Team Providers Care Movie Shot Cameraman Name Role Phone Tobias AGUILAR, Margy Flores Primary Care Physician Encounter [facility] [place] Date(s): 02/24/20 - 03/25/20 [facility] [address] [place] [address]- [facility] Attending Physician: Dale Lr Admitting Physician: AdmtrDale [...] bedtime, 0 Refills, Maintenance, 05/07/18 11:21:56 EDT, [place] Start Date: 05/07/18 Status: Ordered montelukast 10 [...]
--- OUTSIDE RECORDS SUMMARY | 2024-05-16 19:20 | XMS_ITS | Continuity of Care Document ---
Author Organization [facility] Address [address] [place] [address]- Care Team Providers Care Psychiatric Cns Name Role Phone Margy Collado MD Primary Care Physician [phone] Encounter [facility] Date(s): 02/24/20 - 03/02/20 [facility] [address] [place] [address]- [facility] Attending Physician: Juan Ramirez MD Admitting Physician: Juan Ramirez MD Referring Physician: Margy Collado MD Allergies, Adverse [...] bedtime, 0 Refills, Maintenance, 05/07/18 11:21:56 EDT, [place] Start Date: 05/07/18 Status: Ordered montelukast 10 [...]
--- OUTSIDE RECORDS SUMMARY | 2024-05-16 19:20 | XMS_ITS | Continuity of Care Document ---
Author Organization [facility] Address [address] [facility], 3r d Floor, [address] [place] [address]- Care Team Providers Care Care Transitions Nurse Name Role Phone Tobias AGUILAR, Margy Flores Primary Care Physician [phone] [place] [facility] [place] 04/29/20 - 05/29/20 [facility] [address] [place], 3rd Floor, [address] [place] [address]- [facility] Allergies, Adverse Reactions, Alerts Substance Reaction Severity [...] bedtime, 0 Refills, Maintenance, 05/07/18 11:21:56 EDT, [place] Start Date: 05/07/18 Status: Ordered montelukast 10 [...]
--- OUTSIDE RECORDS SUMMARY | 2024-05-16 19:20 | XMS_ITS | Continuity of Care Document ---
Author Organization [facility] Address [address] [place] [address]- Care Team Providers Care Baffle Installer Name Role Phone Tobias AGUILAR, Margy Flores Primary Care Physician [phone] [place] [facility] [place](s[place] 02/24/20 - 03/25/20 [facility] [address] [place] [address]- [facility] Attending Physician: Dale Lr Admitting Physician: AdmDale christian Referring Physician: Admtr ArGenevieve Allergies, Adverse Reactions, Alerts Substance Reaction Severity [...] bedtime, 0 Refills, Maintenance, 05/07/18 11:21:56 EDT, [place] Start Date: 05/07/18 Status: Ordered montelukast 10 [...]
--- OUTSIDE RECORDS SUMMARY | 2024-05-16 19:20 | XMS_ITS | Continuity of Care Document ---
Author Organization [facility] Address [address] [place] [address]- Care Team Providers Care Finish Molder Name Role Phone Tobias AGUILAR, Margy Flores Primary Care Physician [phone] [place] [facility] [place] Date(s[place] 02/22/22 - 03/24/22 [facility] [address] [place] [address]- Attending Physician: AdmDale christian Admitting Physician: AdmtrDale Referring Physician: Admtr, Ar8 [...] bedtime, 0 Refills, Maintenance, 05/07/18 11:21:56 EDT, [place] Start Date: 05/07/18 Status: Ordered montelukast 10 [...] pack years: 50; entered on: 05/15/18 Sex Care Team Personnel Name: Margy Collado MD Address: [address] [place] [address]
--- OUTSIDE RECORDS SUMMARY | 2024-05-16 19:20 | XMS_ITS | Continuity of Care Document ---
Author Organization [facility] Address [address] [place] [address]- Care Team Providers Care Spout Liner Name Role Phone Margy Collado MD Primary Care Physician [id number] - 03/01/21 [facility] [address] [place] [address]- Attending Physician: Juan Ramirez MD Admitting Physician: [...] bedtime, 0 Refills, Maintenance, 05/07/18 11:21:56 EDT, [place] Start Date: 05/07/18 Status: Ordered montelukast 10 [...]
--- OUTSIDE RECORDS SUMMARY | 2024-05-16 19:20 | XMS_ITS | Continuity of Care Document ---
Author Organization [facility] Address [address] [place] [address]- Care Team Providers Care Collection Card Clerk Name Role Phone Tobias AGUILAR, Margy Flores Primary Care Physician [place] [facility] [place] Date(s): 02/22/21 - 03/24/21 [facility] [address] [place] [address]- Attending Physician: Dale Lr Admitting Physician: AdmDale christian Referring Physician: AdmtrDale Allergies, Adverse Reactions, Alerts Substance Reaction Severity Status ciprofloxacin UNKNOWN Active codeine NAUSEA Active aspirin FULL DOSE NAUSEA Active Cymbalta DIZZINESS Active Lyrica UNKNOWN Active cefadroxil UNKNOWN Active metaxalone nausea Active HYDROcodone rash/itching Active gabapentin DIZZINESS Active Motrin VOMITING Active Medications aspirin 81 mg oral tablet [...] bedtime, 0 Refills, Maintenance, 05/07/18 11:21:56 EDT, [place] Start Date: 05/07/18 Status: Ordered montelukast 10 [...]
--- OUTSIDE RECORDS SUMMARY | 2024-05-16 19:20 | XMS_ITS | Continuity of Care Document ---
Author Organization [facility] Address [address] [place] [address]- Care Team Providers Care Games Dealer Name Role Phone Tobias AGUILAR, Margy Flores Primary Care Physician [place] [facility] [place] Date(s): 04/14/24 - 05/14/24 [facility] [address] [place] [address]- Allergies, Adverse Reactions, Alerts Substance Reaction Severity [...] bedtime, 0 Refills, Maintenance, 05/07/18 11:21:56 EDT, [place] Start Date: 05/07/18 Status: Ordered montelukast 10 [...] Team Personnel Name: Margy Collado MD Position: [facility] Outreach Member Role: PCP Address: Address: [address] [place] [address]- Care Team Related Persons Name: ELY BEJARANO Address: [place] [address]
--- OUTSIDE RECORDS SUMMARY | 2024-05-16 19:20 | XMS_ITS | Continuity of Care Document ---
Author Organization [facility] Address [address] [place] [address]- Care Team Providers Care Upper Marker Name Role Phone Margy Collado MD Primary Care Physician [id number] Date(s): 04/30/23 - 05/07/23 [facility] [address] [place] [address]- Attending Physician: More PALAFOX, Rupali Pryor Admitting Physician: More PALAFOX, Rupali Pryor Referring Physician: Margy Collado MD Allergies, Adverse [...] bedtime, 0 Refills, Maintenance, 05/07/18 11:21:56 EDT, [place] Start Date: 05/07/18 Status: Ordered montelukast 10 [...] Team Personnel Name: Margy Collado MD Position: [facility] Outreach Member Role: PCP Address: Address: [address] [place] [address]- Care Team Related Persons Name: ELY BEJARANO Address: [place] [address]
--- OUTSIDE RECORDS SUMMARY | 2024-05-16 19:20 | XMS_ITS | Continuity of Care Document ---
Author Organization [facility] Address [address] [facility], 3r d Floor, [address] [place] [address]- Care Team Providers Care Casino Attendant Name Role Phone Margy Collado MD Primary Care Physician [id number] Date(s): 10/09/19 - 11/15/19 [facility] [address] [facility], 3rd Floor, [address] [place] [address]- [facility] Attending Physician: Gilberto Francis MD Admitting Physician: Gilberto Francis MD Referring Physician: Margy Collado MD Allergies, [...] bedtime, 0 Refills, Maintenance, 05/07/18 11:21:56 EDT, [place] Start Date: 05/07/18 Status: Ordered montelukast 10 [...]
--- OUTSIDE RECORDS SUMMARY | 2024-05-16 19:20 | XMS_ITS ---
Author Organization [facility] Address [address] [place] [address] Care Team Providers Care Gluing Machine Adjuster Name Role Phone Margy Collado Primary Care Provider Unavailab Tomy Benz Unavailable [phone] Encounters Encounter Location Date Provider Diagnosis [facility] [address] [place] [address] 10/30/2023 Tomy Messina PLAN OF TREATMENT Next Appt Details Provider Name:Tomy Messina , 06/10/2024 11:00:00 AM, [address] [place], [address],
--- OUTSIDE RECORDS SUMMARY | 2024-05-16 19:20 | XMS_ITS | Continuity of Care Document ---
Author Organization [facility] Address [address] [place] [address]- Care Team Providers Care Livestock Sales Representative Name Role Phone Tobias AGUILAR, Margy Flores Primary Care Physician [facility] [id number] Date(s): 04/27/22 - 05/04/22 [facility] [address] [place] [address]- Attending Physician: Juan Ramirez MD Admitting Physician: Juan Ramirez MD Allergies, Adverse Reactions, Alerts Substance Reaction Severity Status ciprofloxacin UNKNOWN Active codeine NAUSEA Active cefadroxil UNKNOWN Active aspirin FULL DOSE NAUSEA Active Lyrica UNKNOWN Active metaxalone nausea Active HYDROcodone rash/itching [...] bedtime, 0 Refills, Maintenance, 05/07/18 11:21:56 EDT, [place] Start Date: 05/07/18 Status: Ordered montelukast 10 [...] Active Osteopenia Confirmed Active Emphysema/COPD Confirmed Active Vital Signs Most recent to oldest [Reference Range]: 1 Height 147.32 cm (04/27/22 8:48 AM) Weight 46.72 kg (04/27/22 8:48 AM) Oxygen Saturation [94-100 %] 98 % (04/27/22 8:48 AM) Pulse Rate [55-90 bpm] 66 bpm (04/27/22 8:48 AM) Body Mass Index [18.5-24.99 kg/m2] 21.53 kg/m2 (04/27/22 8:48 AM) Blood Pressure [90-138/55-84 mm Hg] 128/ 68mm Hg (04/27/22 8:48 AM) Mode of Delivery (Oxygen) Room air (04/27/22 8:48 AM) Blood pressure sites Arm, left (04/27/22 8:48 AM) Weight Obtained Via Patient/family state d (04/27/22 8:48 AM) Social History Social History Type Response Smoking Status Former smoker; Tobac co user in household: No; Total pack years: 50; entered on: 05/15/18 Sex Patient Care team information Personnel Name: Margy Collado MD Address: Address: [address] [place] [address]
--- OUTSIDE RECORDS SUMMARY | 2024-05-16 19:20 | XMS_ITS | Continuity of Care Document ---
Author Organization [facility] Address [address] [place] [address]- Care Team Providers Care Residency Coordinator Name Role Phone Margy Collado MD Primary Care Physician En[place] [facility] [place] [id number] Date(s): 08/26/19 - 09/02/19 [facility] [address] [place] [address]- [facility] Attending Physician: Juan Ramirez MD Admitting Physician: [...] bedtime, 0 Refills, Maintenance, 05/07/18 11:21:56 EDT, [place] Start Date: 05/07/18 Status: Ordered montelukast 10 [...] Aneurysm, cerebral(Confirmed) Active Osteopenia(Confirmed) Active Emphysema/COPD(Confirmed) Active Vital Signs Most recent to oldest [Reference Range]: 1 Height 147.32 cm (08/26/19 11:19 AM) Weight 47.9 kg (08/26/19 11:19 AM) Body Mass Index [18.5-24.99] 22.07 (08/26/19 11:19 AM) Blood Pressure [90-138/55-84 mm Hg] 130/ 76mm Hg (08/26/19 11:19 AM) Blood pressure sites Arm, right (08/26/19 11:19 AM) Weight Obtained Via Patient/family state d (08/26/19 11:19 AM) Social History Social History Type Response Smoking Status Former smoker; Tobac co user in household: No; Total pack years: 50; entered on: 05/15/18 Sex
--- OUTSIDE RECORDS SUMMARY | 2024-05-16 19:20 | XMS_ITS | Continuity of Care Document ---
Author Organization [facility] Address [address] [place] [address]- Care Team Providers Care Undercutter Name Role Phone Tobias AGUILAR, Margy Flores Primary Care Physician [place] [facility] [place](s): 11/23/23 - 12/23/23 [facility] [address] [place] [address]- Allergies, Adverse Reactions, Alerts Substance Reaction Severity [...] bedtime, 0 Refills, Maintenance, 05/07/18 11:21:56 EDT, [place] Start Date: 05/07/18 Status: Ordered montelukast 10 [...] Team Personnel Name: Margy Collado MD Position: [facility] Outreach Member Role: PCP Address: Address: [address] [place] [address]- Care Team Related Persons Name: ELY BEJARANO Address: [place] [address]
--- OUTSIDE RECORDS SUMMARY | 2024-05-16 19:20 | XMS_ITS | Continuity of Care Document ---
Author Organization [facility] Address [address] [facility], [address]r d Floor, [address] [place] [address]- Care Team Providers Care Slitter Creaser Slotter Helper Name Role Phone Tobias AGUILAR, Margy Flores Primary Care Physician [place] [facility] [place] Date(s): 03/17/20 - 04/16/20 [facility] [address] [place], [address]rd Floor, [address] [place] [address]- [facility] Allergies, Adverse Reactions, Alerts Substance Reaction Severity [...] bedtime, 0 Refills, Maintenance, 05/07/18 11:21:56 EDT, [place] Start Date: 05/07/18 Status: Ordered montelukast 10 [...]
--- OUTSIDE RECORDS SUMMARY | 2024-05-16 19:21 | XMS_ITS ---
Author Organization [facility] Address [address] [place] [address] Care Team Providers Care Cash Management Associate Name Role Phone Tobias Margy Primary Care Provider Unavailab Tomy Benz Unavailable [phone] REASON FOR VISIT Reschedule Encounters Encounter Location Date Provider Diagnosis [facility] [address] [place] [address] 10/25/2023 Tomy Messina PLAN OF TREATMENT Next Appt Details Provider Name:Tomy Messina , 06/10/2024 11:00:00 AM, [address] [place], [address],
--- OUTSIDE RECORDS SUMMARY | 2024-05-16 19:21 | XMS_ITS | Patient Health Record ---
Author Organization [facility] Address [address] [facility] [place] [address] Care Team Providers Care Franchise Manager Name Role Phone Tobias Margy Primary Care Provider Unavailab Tomy Benz Unavailable [phone] ALLERGIES Allergen (clinical drug ingredient) Drug/Non Drug [...] pain Drug Allergy Activ e REASON FOR REFERRAL No Information MEDICATIONS Medication SIG (Take, Route, Frequency, Duration) Notes Start Date End Date Status Ipratropium [place] Not-Taking Vitamin D3 Active Jessica PRN Active Calcitonin ([place]) Not-Taking Alendronate Sodium A ctive Ativan 0.5 MG 1 tablet at bedtime as needed Orally Once a day PRN Not-Taking Aspirin Active Topamax 50 MG Orally Not-Ta Ammonium Lactate 12 % 1 application to affected area Externally to feet Twice a day for 30 days Active Percocet 5-325 MG 1 tablet as needed Orally every 6 hrs PRN Not-Taking Breo Ellipta Active Citracal Plus Not-Ta Biotin 7500 Active Zetia 5 mg 1 tablet Orally Once a day Not-Taking Citracal +D3 Active Magnesium Not-Taking CoQ10 400 MG 1 capsule with a jose l l Orally Once a day for 30 day(s) Active Anoro Ellipta 62.5-25 MCG/INH Inhalation Once a day Not-Alex owen Gabapentin Active Fish Oil Active Flexeril 5 MG 1 tablet Orally Thre e times a day for 30 day(s) Not-Taking Lidocaine & Adhesive Sheet 5 % (Patch) as directed Externally Active Plavix Not-Taking Multivitamin Active Montelukast Sodium A ctive Omeprazole Active [place] 3 Active ProAir HFA Active Prevagen Active Vitamin B12 Active Simvastatin 10 MG 1 tablet in the even ing Orally Once a day for 30 day(s) Active Vitamin C Active Ambien Active IMMUNIZATIONS Vaccine Route Administration Date Status Comme nts COVID-19 Moderna Vaccine Unknown 06/15/2021 Administered 1st 10/15/20 2nd 11/12/20 SOCIAL HISTORY Tobacco Use: Social History Observation [...] Are you an other tobacco user? No PROBLEMS Problem Type ICD Code Onset Dates Problem Status W/U Status Risk SNOMED Code Notes Problem Plantar wart (B07.0) Active confirmed Plantar wart (28669394) Problem Neuritis of right foot (G57.91) Active confirmed Mononeuropathy of lower limb (702771827) Problem Neuritis of left foot (G57.92) Active confirmed Mononeuropathy of lower limb (022371191) Problem Atherosclerosis of [place] artery of both lower extremities, with unspecified presence of clinical manifestation (I70.203) Active confirmed Atherosclerosis of [place] arteries of the extremities (831474379383468) VITAL SIGNS Height 4 ft 10 in in 12/07/2023 Weight 103.8 lbs 12/07/2023 BMI 21.69 kg/m2 12/07/2023 PROCEDURES Procedure Date Ordered Date Performed Result Body Sit e 62129-BIHAEZK NAIL, 6 OR MORE 05/25/2023 N/A 23750-Bdvg Destruction, 1-14 05/25/2023 N/A 39451-KOYL SKIN LESIONS, 2 TO 4 05/25/2023 N/A 13188-DVUDNPS NAIL, 6 OR MORE 12/07/2023 N/A 91952-Hxuw Destruction, 1-14 12/07/2023 N/A 24637-JEYP SKIN LESIONS, 2 TO 4 12/07/2023 N/A Encounters Encounter Location Date Provider Diagnosis [address] [address] 05/21/[address] [address] 05/25/2023 Tomy Messina Atherosclerosis of [place] artery of both lower extremities, with unspecified presence of clinical manifestation I70.203 ; Tinea unguium B35.1 ; Pain in right toe(s) M79.674 ; Pain in left toe(s) M79.675 ; Plantar wart B07.0 ; Left foot pain M79.672 ; Neuritis of left foot G57.92 and Neuritis of right foot G57.[address] [address] 10/25/[address] [address] 10/30/[address] [address] 12/07/2023 Tomy Messina Atherosclerosis of [place] artery of both lower extremities, with unspecified presence of clinical manifestation I70.203 ; Tinea unguium B35.1 ; Pain in right toe(s) M79.674 ; Pain in left toe(s) M79.675 ; Plantar wart B07.0 and Left foot pain M79.672 ASSESSMENTS Encounter Date Diagnosis Assessment Notes Treatment Notes Treatment Clinical Notes 05/25/2023 Tinea unguium (ICD-1 0 - B35.1) 05/25/2023 Atherosclerosis of [place] artery of both lower extremities, with unspecified presence of clinical manifestation (ICD-10 - I70.203) 12/07/2023 Tinea unguium (ICD-1 0 - B35.1) 12/07/2023 Atherosclerosis of [place] artery of both lower extremities, with unspecified presence of clinical manifestation (ICD-10 - I70.203) 12/07/2023 Pain in right toe(s) (ICD-10 - M79.674) 05/25/2023 Pain in right toe(s) (ICD-10 - M79.674) 05/25/2023 Pain in left toe(s) (ICD-10 - M79.675) 12/07/2023 Pain in left toe(s) (ICD-10 - M79.675) 12/07/2023 Plantar wart (ICD-10 - B07.0) 05/25/2023 Plantar wart (ICD-10 - B07.0) 05/25/2023 Left foot pain (ICD- 10 - M79.672) 12/07/2023 Left foot pain (ICD- 10 - M79.672) 05/25/2023 Neuritis of left luis t (ICD-10 - G57.92) 05/25/2023 Neuritis of right fo ot (ICD-10 - G57.91) PLAN OF TREATMENT Pending Test Test Name Order Date 80969-IRXRPYQ NAIL, 6 OR MORE 06/14/2012 26327-HZTMYMK NAIL, 6 OR MORE 09/27/2012 81023-IARTWDM NAIL, 6 OR MORE 01/03/2013 13087-BRPYYYO NAIL, 6 OR MORE 04/11/2013 42424-AGSTHVI NAIL, 6 OR MORE 07/11/2013 72677-TFIFJUF NAIL, 6 OR MORE 10/21/2013 18817-VMIKYRI NAIL, 6 OR MORE 02/17/2014 64769-LQVNKIH NAIL, 6 OR MORE 08/04/2014 46023-ZONURXC NAIL, 6 OR MORE 12/01/2014 36883-OCHXOUK NAIL, 6 OR MORE 05/04/2015 19897-OKDHDDH NAIL, 6 OR MORE 10/01/2015 44969-ETNRTRM NAIL, 6 OR MORE 02/01/2016 31478-EHSBLCM NAIL, 6 OR MORE 06/02/2016 52659-GHNEFAQ NAIL, 6 OR MORE 09/29/2016 11030-BRMZOID NAIL, 6 OR MORE 03/09/2017 57374-XGBWDJH NAIL, 6 OR MORE 07/13/2017 07675-IPWYLDD NAIL, 6 OR MORE 12/25/2017 81975-KQAMBWI NAIL, 6 OR MORE 07/12/2018 59683-ACPLUFK NAIL, 6 OR MORE 01/21/2019 67477-FJZIAAZ NAIL, 6 OR MORE 09/19/2019 96740-RFHIRAE NAIL, 6 OR MORE 06/30/2011 28887-LSAEIOS NAIL, 6 OR MORE 11/03/2011 43112-OYBCPZC NAIL, 6 OR MORE 03/05/2012 83944-YRQCLWP NAIL, 6 OR MORE 11/05/2020 93755-OSCUBFS NAIL, 6 OR MORE 09/09/2021 58079-DCHZUIY NAIL, 6 OR MORE 10/24/2022 87019-IUWNACE NAIL, 6 OR MORE 05/25/2023 08657-WCQQCDL NAIL, 6 OR MORE 12/07/2023 47046-Jpqo Destruction, 1-14 12/07/2023 07235-Cnai Destruction, -14 05/25/2023 30842-Elvb Destruction, 1-14 10/24/2022 67476-Bqqh Destruction, 1-14 09/09/2021 65984-Eczm Destruction, -14 11/05/2020 49702-Opul Destruction, 1-14 09/19/2019 41671-Yhopdxsx Plate 03/05/2012 60976-Azmxaawp Plate 11/03/2011 43636- Debride <25 sq cm 04/07/2011 85941-IJHY SKIN LESIONS, 2 TO 4 12/07/19 24 29816-MDPT SKIN LESIONS, 2 TO 4 10/25/19 23 13265-EOGX SKIN LESIONS, 2 TO 4 05/25/20 23 Next Appt Details Provider Name:Tomy Isabella Messina , 06/10/2024 11:00:00 AM, [address] [place], [address], Insurance Providers Payer Name Payer Address Payer Phone Subscriber Number Group Number Insured Name Patient Relationship to Insured Coverage Start Date Coverage End Date Medicare National [employer] [address] [place] [address] [id number] Yamilex Freedman Self - patient is the insured MEDICAL (GENERAL) HISTORY Medical History History ICD Code stomach ulcer osteoporosis measles joint implants/screws Cholesterol back, hip, knee pain Arthritis Surgical History Surgery Date(Month/Year) back surgery 1972 bilateral thoracic faucet block 05/16/20 12 colonoscopoy, endoscopy 2011 3 procedures for brain aneurysms 01/2014 tubal ligation 06/2018 oopherectomy 06/2018 Hand Surgery 2019
[2024-05-16 19:27] LABS: Ethanol < 10 mg/dL
[2024-05-16 19:28] LABS: Alanine Aminotransferase 14 U/L (0-31); Albumin Level 4.1 g/dL (3.5-5.0); Alkaline Phosphatase 72 U/L (39-117); Anion Gap 13 (12-20); Aspartate Amino Transferase 28 U/L (5-31); Bilirubin Direct 0.2 mg/dL (0.0-0.5); Bilirubin Total 0.3 mg/dL (0.0-1.0); Blood Urea Nitrogen 26 mg/dL (9-16); Calcium 9.8 mg/dL (8.4-10.2); Carbon Dioxide 27 mmol/L (22-29); Chloride 107 mmol/L (96-108); Creatinine Clr Calc Pharmacy 37.6; Estimated Glomerular Filt Rate 58; Glucose Random 112 mg/dL (60-115); Magnesium 2.1 mg/dL (1.6-2.6); Potassium 4.4 mmol/L (3.3-5.1); Sodium 143 mmol/L (135-145); Total Protein 6.6 g/dL (6.5-8.0)
[2024-05-16 19:35] LABS: Troponin-I High Sensitivity 2.8 ng/L (<3.5-17.0)
[2024-05-16] MEDS: iohexoL 350 MG/ML 100 ML INFUS..BTL 65 ML IV (20:03)
--- NOTE | 2024-05-16 20:10 | MHC.EDTECH ---
This tech assumed care of pateint at 1900,rounded and introduced self to patient,orthostatic vitals taken,attempted to get a urine sample,patient stated I don't have to go yet will re-attempt,daughter at bedside call bennett in reach
--- NOTE | 2024-05-16 21:55 | MHC.EDTECH ---
Patient got up to commode with minimal assist,patient urinated 250MLS of yellow urine, humberto care given and urine sample obtained and sent to lab,vitals taken,call bennett in reach
--- NOTE | 2024-05-16 21:56 | PC.NURSE ---
straight cath not completed per patient and daughter request. Pt wanted to get up to attempt to void on her own. Pt up to bedside commode with 1 person assist. Pt successfully was able to void and provide a sample
[2024-05-16 22:05] LABS: Appearance Urine Clear; Color Urine Yellow; Glucose Urine UA Negative (Negative); Leukocyte Esterase Urine Trace (Negative); Nitrite Urine Negative (Negative); Specific Gravity - Urine >= 1.030 (1.005-1.025); UMIC TRIGGER UACC YES; Urine Blood Negative (Negative); Urine Ketones Negative (Negative); Urine Protein Negative (Neg-Trace)
[2024-05-16 22:18] LABS: Amphetamine Screen Urine Not Detected (Not Detect); Barbiturates, Urine Not Detected (Not Detect); Benzodiazepines Screen Urine Not Detected (Not Detect); Buprenorphine Scr Not Detected (Not Detect); Cannabinoid Screen Urine POSITIVE (Not Detect); Cocaine Screen Urine Not Detected (Not Detect); Fentanyl, urine Not Detected (Not Detect); Methadone Screen, Urine Not Detected (Not Detect); Opiate Screen Urine Not Detected (Not Detect); Oxycodone Screen Urine Positive (Not Detect); Phencyclidine Screen Urine Not Detected (Not Detect)
[2024-05-16 22:22] LABS: Bacteria Urine None Seen (None Seen); Hyaline Casts Urine 0-2 /LPF (0-2); RBC Urine 0-2 /HPF (0-2); Squamous Epithelial Cell Urine 0-2 /HPF (0-2); UACC Culture Trigger YES
--- NOTE | 2024-05-16 23:26 | MHC.EDTECH ---
Hourly rounding and vitals completed,patient is resting quietly,call bennett in reach
--- NOTE | 2024-05-17 00:17 | MHC.EDTECH ---
Provider requested an ambulation trial,patient ambulated with cane pt has a steady gait,was a little off balance while getting OOB,RN/provider are aware
[2024-05-17 02:43] VITALS: BP 102/62; PULSE 70; RESP 16; TEMP 36.7; O2SAT 98
== END 2024-05-17 02:44 | disposition home or self-care (01) ==
PROVIDERS: Emergency Provider Emergency Medicine; PCP Family Medicine
DX: R42 Dizziness and giddiness (principal); T50.995A Adverse effect of other drugs, medicaments and biological substances, initial encounter; Y92.9 Unspecified place or not applicable; R41.0 Disorientation, unspecified; R29.700 NIHSS score 0; R20.0 Anesthesia of skin; R20.2 Paresthesia of skin
CPT/HCPCS: 36415; 70496; 70498; 80048; 80076; 80307; 81001; 82947; 83735; 84484; 85025; 85610; 87086; 93005; 99285; Q9967

== ENCOUNTER → 2024-05-16 18:29 | Outpatient (BNV) | payer MEDICARE, MEDICAID, SELFPAY | PROVIDERS: Emergency Provider Emergency Medicine; PCP Family Medicine; Visit Provider Internal Medicine | DX: R42 Dizziness and giddiness (principal) | CPT/HCPCS: 93010 ==

== ENCOUNTER 2025-05-12 13:28 | Outpatient (REF) | payer MEDICARE, MEDICAID, SELFPAY ==
--- OUTSIDE RECORDS SUMMARY | 2024-11-07 07:15 | XMS_ITS ---
Author Organization [facility] Address [address] [place] [address] Care Team Providers Care District Sales Leader Name Role Phone Margy Collado Primary Care Provider Unavailab Tomy Benz Unavailable [phone] Allergies Allergen (clinical drug ingredient) Drug/Non Drug Allergy documented on EMR Reaction Allergy Type Onset Date Status ibuprofen Advil nausea Drug Allergy Active Aleve nausea Drug Allergy Active aspirin Aspirin nausea Drug Allergy Active duloxetine Cymbalta can't walk Drug Allergy Activ e pregabalin Lyrica sleepy Drug Allergy Active Motrin nausea Drug Allergy Active topiramate Topiramate head pain Drug Allergy Activ e Medications Medication SIG (Take, Route, Frequency, Duration) Notes Start Date End Date Status [place] 3 Active Multivitamin Active Omeprazole Active Lidocaine & Adhesive Sheet 5 % (Patch) as directed Externally Active Montelukast Sodium A ctive Ammonium Lactate 12 % 1 application to affected area Externally to feet Twice a day; Duration: 30 days Active Alendronate Sodium A ctive Biotin 7500 Active Aspirin 81 MG 1 capsule Orally Onc e a day Active CoQ10 400 MG 1 capsule with a jose l l Orally Once a day; Duration: 30 day(s) Active Magnesium Not-Taking Anoro Ellipta 62.5-25 MCG/INH Inhalation Once a day Not-Ta lexie Plavix Not-Taking Flexeril 5 MG 1 tablet Orally Thre e times a day; Duration: 30 day(s) Not-Taking Citracal Plus Not-Ta lexie Ativan 0.5 MG 1 tablet at bedtime as needed Orally Once a day PRN Not-Taking Percocet 5-325 MG 1 tablet as needed Orally every 6 hrs PRN Not-Taking Calcitonin ([place]) Not-Taking Topamax 50 MG Orally Not-Ta lexie Zetia 5 mg 1 tablet Orally Once a day Not-Taking Fish Oil Not-Taking Citracal +D3 Not-Andrew ing Prevagen Not-Taking Gabapentin Not-Takin g Ipratropium [place] Not-Taking Vitamin D3 Active Vitamin C Active Ambien Not-Taking Breo Ellipta Not-Andrew ing Jessica PRN Not-Taking ProAir HFA Active Vitamin B12 Active Simvastatin 10 MG 1 tablet in the even ing Orally Once a day; Duration: 30 day(s) Active Encounters Encounter Location Date Provider Diagnosis [facility] [address] [address] 11/07/2024 Tomy Messina Plan Of Treatment Next Appt Details Provider Name:Tomy Messina , 06/09/2025 11:30:00 AM, [address] [place] [address], [address], Progress Notes * Yamilex FREEDMAN MDOB: [birth year] (79 yo F)Acc No.[id number]:11/07/2024 Progress Note Patient: Consuelo Yamilex BOUDREAUX Provider: Kiesha Messina DPM :1945 A ge:79 Y S ex:Female Date:11/07/2024 Address:[address] [place], [place] [address] Pcp:Margy Collado Subjective: * Chief Complaints: * * Medical History: S tomach ulcer, Osteoporosis, Measles, Joint implants/screws, Cholesterol, Back, hip, knee pain, Arthritis. * Medications: T aking Alendronate Sodium , Taking Ammonium Lactate 12 % Cream 1 application to affected area Externally to feet Twice a day , Taking Aspirin 81 MG Capsule 1 capsule Orally Once a day , Taking Biotin 7500 , Taking CoQ10 400 MG Capsule 1 capsule with a meal Orally Once a day , Taking Lidocaine & Adhesive Sheet 5 % (Patch) Kit as directed Externally , Taking Montelukast Sodium , Taking Multivitamin , Taking [place] 3 , Taking Omeprazole , Taking ProAir HFA , Taking Simvastatin 10 MG Tablet 1 tablet in the evening Orally Once a day , Taking Vitamin B12 , Taking Vitamin C , Taking Vitamin D3 , Not-Taking/PRN Ambien , Not-Taking/PRN Jessica , Notes to Pharmacist: PRN, Not-Taking/PRN Breo Ellipta , Not-Taking/PRN Citracal +D3 , Not-Taking/PRN Fish Oil , Not-Taking/PRN Gabapentin , Not-Taking/PRN Prevagen , Not-Taking/PRN Ipratropium [place] , Not-Taking/PRN Ativan 0.5 MG Tablet 1 tablet at bedtime as needed Orally Once a day , Notes to Pharmacist: PRN, Not-Taking/PRN Calcitonin ([place]) , Not-Taking/PRN Percocet 5-325 MG Tablet 1 tablet as needed Orally every 6 hrs , Notes to Pharmacist: PRN, Not-Taking/PRN Topamax 50 MG Tablet Orally , Not-Taking/PRN Zetia 5 mg Tablet 1 tablet Orally Once a day , Not-Taking/PRN Citracal Plus , Not-Taking/PRN Anoro Ellipta 62.5-25 MCG/INH Aerosol Powder Breath Activated Inhalation Once a day , Not-Taking/PRN Magnesium , Not-Taking/PRN Flexeril 5 MG Tablet 1 tablet Orally Three times a day , Not-Taking/PRN Plavix * Allergies: A dvil: nausea, Aleve: nausea, Motrin: nausea, Aspirin: nausea, Cymbalta: can't walk, Lyrica: sleepy, Topiramate: head pain. Objective: * Vitals: Assessment: Plan: * Treatment: * Images: * The named appointment provid er may or may not be the originator of this progress note, and it is not deemed complete until electronically signed by the appointment provider. Sign off status: Pending * Provider: Kiesha Messina DPM Date: 0 11/07/2024 Generated for Natalya [email or web address] on: 04:19 PM EDT
--- OUTSIDE RECORDS SUMMARY | 2025-05-12 16:20 | XMS_ITS | Encounter Summary ---
Author Organization [facility] Address [address] [place] [address] Phone Care Team Providers Care Sales Financial Analyst Name Role Phone Celina Stauffer DO Unavailable [phone] Margy Collado MD Unavailable [phone] Sarthak Coronel MD, MS Unavailable [phone] Margy Collado MD Primary Care Provider [phone] Dean Cardoza MD Unavailable Encounter Details Date Type Department Care Team (Late st Contact Info) Description 10/16/2017 Transcribe Orders Virtual Department [address] [place] [address] Margy Collado MD [address] [place] [id number] [email or web address] Social History Tobacco Use Types Packs/Day Years Used Date Smoking Tobacco: Former Cigarettes 2.5 50 1 957 - 2007 Smokeless Tobacco: Never Alcohol Use Standard Drinks/Week Comments No 0 (1 standard drink = 0.6 oz pur e alcohol) Comments Unknown Sex and Gender Information Value Date Recorded Sex Assigned at Not on file Legal Sex Female 10:08 PM EDT Gender Identity Not on file Sexual Orientation Not on file documented as of this encounter Plan of Treatment Not on file documented as of this encounter Visit Diagnoses Not on filedocumented in this encounter Additional Health Concerns Infection Onset Date Last Indicated Resolved Time CoV-Risk 06/18/2023 06/18/2023 06/29/2023 1:21 AM EST documented as of this encounter Care Teams Sales Financial Analyst Relationship Specialty Start Date End Date Margy Collado MD [address] [place] [address] [email or web address] PCP - General 05/17/17 Celina Stauffer DO [address] [place] [address] [email or web address] Historical LMR Provider 05/16/17 02/21/22 Margy Collado MD [address] [place] [address] [email or web address] Historical LMR Provider 05/16/17 Sarthak Coronel MD, MS [address] [place] [address] [email or web address] Historical LMR Provider 05/16/17 Dean Cardoza MD [address] [place] [address] [email or web address] Primary Oncologist Oncology 02/22/22 documented as of this encounter Additional Source Comments The information contained in this document represents components of the legal health record. It is not the complete legal health record.[facility]
--- OUTSIDE RECORDS SUMMARY | 2025-05-12 16:20 | XMS_ITS | Encounter Summary ---
Author Organization [facility] Address [address] [place] [address] Phone Care Team Providers Care Resident Care Associate Name Role Phone Celina Stauffer Unavailable [phone] Margy Collado MD Unavailable [phone] Sarthak Coronel MD, MS Unavailable [phone] Margy Collado MD Primary Care Provider [phone] Dean Cardoza MD Unavailable [phone] Reason for Referral * Consultation (Elective) - Closed Specialty Diagnoses / Procedures Referred By Lise avery Referred To Contact Genetics Diagnoses Family history of malignant neoplasm of ovary Margy Collado MD Phone: tel: fax: [email or web address] [address] [address] Phone: tel: Referral ID Status Reason Start Date Expiration Date Visits Re quested Visits Authorized [id number] Closed 09/19/2017 09/19/2018 1 1 Encounter Details Date Type Department Care Team (Late st Contact Info) Description 09/19/[address] [facility] Department [address] [place] [address] Margy Collado MD [address] [place] [phone] [email or web address] Family history of malignant neoplasm of ovary (Primary Dx) Social History Tobacco Use Types Packs/Day Years Used Date Smoking Tobacco: Former Cigarettes 2.5 50 1 957 - 2006 Smokeless Tobacco: Never Alcohol Use Standard Drinks/Week [...] on file documented as of this encounter Procedures Procedure Name Priority Date/Time Associated Diagnosis Comments AMB REFERRAL TO [facility] GENETICS Routine 03/07/2018 1:03 PM EDT Family history of malignant neoplasm of ovary documented in this encounter Results * Ambulatory referral to [facility] Genetics (03/07/2018 1:03 PM EDT) us Margy Collado MD AMB [facility] REFERRALS Final Res ult documented in this encounter Visit Diagnoses Diagnosis Family history of malignant neoplasm of ovary- Primary documented in this encounter Additional Health Concerns Infection Onset Date Last Indicated Resolved Time CoV-Risk 06/18/2023 06/18/2023 06/29/2023 1:21 AM EST documented as of this encounter Care Teams Resident Care Associate Relationship Specialty Start Date End Date Margy Collado MD [address] [place] [address] [email or web address] PCP - General 05/17/17 Celina Stauffer DO [address] [place] [address] [email or web address] Historical LMR Provider 05/16/17 02/21/22 Margy Collado MD [address] [place] [address] [email or web address] Historical LMR Provider 05/16/17 Sarthak Coronel MD, MS [address] [place] [address] [email or web address] Historical LMR Provider 05/16/17 Dean Cardoza MD [address] [place] [address] [email or web address] Primary Oncologist Oncology 02/22/22 documented as of this encounter Additional Source Comments The information contained in this document represents components of the legal health record. It is not the complete legal health record.[facility]
--- OUTSIDE RECORDS SUMMARY | 2025-05-12 16:20 | XMS_ITS | Encounter Summary ---
Author Organization [facility] Address [address] [place] [address] Phone Care Team Providers Care Tree Wrapper Name Role Phone Celina Stauffer DO Unavailable [phone] Margy Collado MD Unavailable [phone] Sarthak Coronel MD, MS Unavailable [phone] Margy Collado MD Primary Care Provider [phone] Dean Cardoza MD Unavailable [phone] Encounter Details Date Type Department Care Team (Late st Contact Info) Description 07/26/2018 Ancillary Orders Non-Invasive Cardiology [address] [place] [address] Margy Collado MD [address] [place] [address] [email or web address] Chest pain, unspecified type Social History Tobacco Use Types Packs/Day Years [...] on file documented as of this encounter Results * NC Stress Result for Nuclear Stress Test (07/26/2018 12:30 PM EST) Pathologist [facility] Max BP Systolic 132 mmHg [facility] Max BP Diastolic 70 mmHg [facility] Max HR 129 BPM [facility] Resting HR 89 BPM [facility] Resting BP Systolic 100 mmHg [facility] Resting BP Diastolic 60 mmHg [facility] Peak METS 7.0 METS [facility] Peak HR 125 BPM [facility] Peak BP Systolic 132 mmHg [facility] Peak BP Diastolic 70 mmHg [facility] Anatomical Region Laterality Modality Heart Other 07/26/2018 11:3 5 AM EST 07/26/2018 12:30 PM EST Narrative 07/26/2018 3:46 PM EST Response to Stress The patient exercised for minutes seconds, achieving 7.0 METS at peak exercise. Baseline blood pressure was 100/60 mmHg, and baseline heart rate was 89 bpm. Peak blood pressure was 132/70 mmHg. The patient achieved a peak heart rate of 125 bpm, which is% of their maximum predicted heart rate. Rate pressure product was [address]. Exercise Stress Test Report: Reason for termination: Summary: Resting ECG: SR HR 63 BPM TWI I, II, III, aVF, V3-V6 (present on EKG in PCP office dated 07/15/18) Functional capacity: good Heart rate response to exercise: appropriate Blood pressure response to exercise: baseline normotensive - appropriate response to exercise Chest pain: baseline reproducible chest discomfort/awareness (with cough and palpation) that patient has had x months Arrhythmias: none Conclusion: Patient exercised for 6:00 minutes on a standard Arnoldo protocol achieving 87% MPHR and 7 METS. Test terminated due to fatigue. Summary: 1. EKG: Baseline TWI in multiple leads, not worsening with exertion 2. Symptoms: Baseline chest 'discomfort did not worsen with activity. 3. Exercise physiology: Normal heart rate and BP response to exercise. Max HR 129 BPM with normal HR recovery. Max BP 132/70 from baseline BP of 100/60. Good functional capacity for age. 4. Arrhythmia: occasional PVC Conclusion: Nondiagnostic ETT portion of test due to baseline EKG abnormalities. Chest discomfort did not worsen with activity. Vital signs at baseline at time of discharge from the lab. Nuclear images to follow under separate document. EKG reviewed with Dr. Mike. Irene Myles, AUTOMOBILE RADIATOR MECHANIC, MPH . us Margy Collado MD CV NM CARDIAC Final Resul t documented in this encounter Visit Diagnoses Diagnosis Chest pain, unspecified type Chest pain, unspecified type documented in this encounter Additional Health Concerns Infection Onset Date Last Indicated Resolved Time CoV-Risk 06/18/2023 06/18/2023 06/29/2023 1:21 AM EST documented as of this encounter Care Teams Tree Wrapper Relationship Specialty Start Date End Date Margy Collado MD [address] [place] [address] [email or web address] PCP - General 05/17/17 Celina Stauffer DO [address] [place] [address] [email or web address] Historical LMR Provider 05/16/17 02/21/22 Margy Collado MD [address] [place] [address] [email or web address] Historical LMR Provider 05/16/17 Sarthak Coronel MD, MS [address] [place] [address] [email or web address] Historical LMR Provider 05/16/17 Dean Cardoza MD [address] [place] [address] [email or web address] Primary Oncologist Oncology 02/22/22 documented as of this encounter Additional Source Comments The information contained in this document represents components of the legal health record. It is not the complete legal health record.[facility]
--- OUTSIDE RECORDS SUMMARY | 2025-05-12 16:20 | XMS_ITS | Encounter Summary ---
Author Organization [facility] Address [address] [place] [address] Phone Care Team Providers Care Glass Cutter Name Role Phone Celina Stafufer DO Unavailable [phone] Margy Collado MD Unavailable [phone] Sarthak Coronel MD, MS Unavailable [phone] Margy Collado MD Primary Care Provider [phone] Dean Cardoza MD Unavailable Encounter Details Date Type Department Care Team (Late st Contact Info) Description 12/28/2017 Transcribe Orders [facility] PFT Lab [address] [place] [address] Sarthak Coronel MD, MS [address] [id number] [email or web address] Social History Tobacco Use Types Packs/Day Years [...] documented as of this encounter Care Teams Glass Cutter Relationship Specialty Start Date End Date Margy Collado MD [address] [place] [address] [email or web address] PCP - General 05/17/17 Celina Stauffer DO [address] [place] [address] [email or web address] Historical LMR Provider 05/16/17 02/21/22 Margy Collado MD [address] [place] [address] [email or web address] Historical LMR Provider 05/16/17 Sarthak Coronel MD, MS [address] [place] [address] [email or web address] Historical LMR Provider 05/16/17 Dean Cardoza MD [address] [place] [address] [email or web address] Primary Oncologist Oncology 02/22/22 documented as of this encounter Additional Source Comments The information contained in this document represents components of the legal health record. It is not the complete legal health record.[facility]
--- OUTSIDE RECORDS SUMMARY | 2025-05-12 16:20 | XMS_ITS | Encounter Summary ---
Author Organization [facility] Address [address] [place] [address] Phone Care Team Providers Care Geotechnicial Properties Technician Name Role Phone Celina Stauffer DO Unavailable [phone] Margy Collado MD Unavailable [phone] Sarthak Coronel MD, MS Unavailable [phone] Margy Collado MD Primary Care Provider [phone] Dean Cardoza MD Unavailable Reason for Referral * MRI/CAT Scan - Closed Specialty Diagnoses / Procedures Referred By Contac t Referred To Contact Radiology Diagnoses Chest pain, unspecified type Procedures NC Myocardial Perfusion Exercise Multiple Margy Collado MD Phone: tel: fax: [email or web address] Referral ID Status Reason Start Date Expiration Date Visits Re quested Visits Authorized [id number] Closed 07/17/2018 07/17/2019 1 2 Encounter Details Date Type Department Care Team (Late st Contact Info) Description 07/17/2018 Ancillary Orders Virtual Department [address] [place] [phone] Margy Collado MD [address] [place] [address] [email or web address] Chest pain, unspecified type Social History Tobacco [...] as of this encounter Results * NC Myocardial Perfusion Exercise Multiple (07/26/2018 12:49 PM EST) Anatomical Region Laterality Modality Heart, Vascular Nuclear Medicine 07/26/2018 12:5 0 PM EST Impressions 07/26/2018 12:53 PM EST Normal cardiac scintigraphy. No findings of prior infarction or current ischemia are identified. The appearance is unchanged relative to prior imaging from April 21, 2016. S/S: Chest pain, abnormal EKG POS - [id number] Narrative 07/26/2018 12:53 PM EST The patient is injected intravenously with 9.9 mCi of Tc99m labeled Cardiolite at rest and 27.4 mCi with the same agent at stress. SPECT images are obtained of both injections and are gated at stress. The patient is stressed utilizing exercise test and achieved a peak heart rate which is 87% of that predicted. Evaluation of the left ventricular perfusion discloses a normal sized left ventricular cavity. No fixed or reversible perfusion defects are seen. There is normal wall motion and wall thickening evident.. The estimated left ventricular ejection fraction is greater than 70%. TID ratio 0.97. Procedure Note Marcin Matamoros MD - 07/26/2018 The patient is injected intravenously with 9.9 mCi of Tc99m labeledCardiolite at rest and 27.4 mCi with the same agent at stress. SPECTimages are obtained of both injections and are gated at stress. Thepatient is stressed utilizing exercise test and achieved a peak heart ratewhich is 87% of that predicted. Evaluation of the left ventricular perfusion discloses a normal sized leftventricular cavity. No fixed or reversible perfusion defects are seen.There is normal wall motion and wall thickening evident.. The estimatedleft ventricular ejection fraction is greater than 70%. TID ratio 0.97. IMPRESSION: Normal cardiac scintigraphy. No findings of prior infarction or currentischemia are identified. The appearance is unchanged relative to priorimaging from April 21, 2016. S/S: Chest pain, abnormal EKG POS - [id number] us Margy Collado MD CV NM CARDIAC Final Resul t documented in this encounter Visit Diagnoses Diagnosis Chest pain, unspecified type Chest pain, unspecified type documented in this encounter Additional Health Concerns Infection Onset Date Last Indicated Resolved Time CoV-Risk 06/18/2023 06/18/2023 06/29/2023 1:21 AM EST documented as of this encounter Care Teams Geotechnicial Properties Technician Relationship Specialty Start Date End Date Margy Collado MD [address] [place] [address] [email or web address] PCP - General 05/17/17 Celina Stauffer DO [address] [place] [address] [email or web address] Historical LMR Provider 05/16/17 02/21/22 Margy Collado MD [address] [place] [address] [email or web address] Historical LMR Provider 05/16/17 Sarthak Coronel MD, MS [address] [place] [address] [email or web address] Historical LMR Provider 05/16/17 Dean Cardoza MD [address] [place] [address] [email or web address] Primary Oncologist Oncology 02/22/22 documented as of this encounter Additional Source Comments The information contained in this document represents components of the legal health record. It is not the complete legal health record.[facility]
--- OUTSIDE RECORDS SUMMARY | 2025-05-12 16:20 | XMS_ITS | Encounter Summary ---
Author Organization [facility] Address [address] [place] [address] Phone Care Team Providers Care Sports Medicine [place] Name Role Phone Celina Stauffer DO Unavailable [phone] Margy Collado MD Unavailable [phone] Sarthak Coronel MD, MS Unavailable [phone] Margy Collado MD Primary Care Provider [phone] Dean Cardoza MD Unavailable Encounter Details Date Type Department Care Team (Late st Contact Info) Description 07/18/2018 Transcribe Orders Virtual Department [address] [place] [address] Margy Collado MD [address] [place] [address] [email or web address] Chest pain, unspecified type (Primary Dx) Social History Tobacco Use Types [...] documented as of this encounter Visit Diagnoses Diagnosis Chest pain, unspecified type- Primary documented in this encounter Additional Health Concerns Infection Onset Date Last Indicated Resolved Time CoV-Risk 06/18/2023 06/18/2023 06/29/2023 1:21 AM EST documented as of this encounter Care Teams Sports Medicine [place] Relationship Specialty Start Date End Date Margy Collado MD [address] [place] [address] [email or web address] PCP - General 05/17/17 Celina Stauffer DO [address] [place] [address] [email or web address] Historical LMR Provider 05/16/17 02/21/22 Margy Collado MD [address] [place] [address] [email or web address] Historical LMR Provider 05/16/17 Sarthak Coronel MD, MS [address] [place] [address] [email or web address] Historical LMR Provider 05/16/17 Dean Cardoza MD [address] [place] [address] [email or web address] Primary Oncologist Oncology 02/22/22 documented as of this encounter Additional Source Comments The information contained in this document represents components of the legal health record. It is not the complete legal health record.[facility]
--- OUTSIDE RECORDS SUMMARY | 2025-05-12 16:20 | XMS_ITS | Encounter Summary ---
Author Organization [facility] Address [address] [place] [address] Phone Care Team Providers Care Counsel Name Role Phone Celina Stauffer DO Unavailable [phone] Margy Collado MD Unavailable [phone] Sarthak Coronel MD, MS Unavailable [phone] Margy Collado MD Primary Care Provider Dean Cardoza MD Unavailable [phone] Encounter Details Date Type Department Care Team (Late st Contact Info) Description 10/11/2017 Ancillary Orders [facility], X-Ray - [address] [address] Ky Wallace MD [address] [place] [address] Bursitis of right shoulder Social History Tobacco Use Types Packs/Day Years [...] documented as of this encounter Results * XR SHOULDER 2 VIEWS (RIGHT) (10/11/2017 3:36 PM EDT) Anatomical Region Laterality Modality Shoulder Right Radiographic Veronica ging 10/11/2017 3:54 PM EDT Impressions 10/11/2017 4:07 PM EDT Mild impingement changes. No prominent joint space loss, fracture, or bony lesion. POS - [id number] Edited by: Keren Fleming on 10/11/2017 4:00 PM Narrative 10/11/2017 4:07 PM EDT Right shoulder 3 views. No prior. No glenohumeral or acromioclavicular malalignment. No marked joint space loss or bony destructive lesion is seen. No findings of chronic rotator cuff tear or clear findings of calcific tendinopathy. No pneumothorax in adjacent lung. There is scoliosis. No cervical ribs seen. Mild impingement change suggested at the humeral head. Procedure Note Airs Delcid MD - 10/11/2017 Right shoulder 3 views. No prior. No glenohumeral or acromioclavicularmalalignment. No marked joint space loss or bony destructive lesion isseen. No findings of chronic rotator cuff tear or clear findings ofcalcific tendinopathy. No pneumothorax in adjacent lung. There isscoliosis. No cervical ribs seen. Mild impingement change suggested atthe humeral head. IMPRESSION: Mild impingement changes. No prominent joint space loss, fracture, orbony lesion. POS - [id number] Edited by: Keren Fleming on 10/11/2017 4:00 PM us Ky Wallace MD IMG XR UPPER EXTREMITY F inal Result * XR Humerus (Right) (10/11/2017 3:34 PM EDT) Anatomical Region Laterality Modality Arm Right Radiographic Veronica ging 10/11/2017 3:55 PM EDT Impressions 10/11/2017 4:07 PM EDT No source of pain is identified radiographically. POS - [id number] Edited by: Keren Fleming on 10/11/2017 4:01 PM Narrative 10/11/2017 4:07 PM EDT AP and lateral views right humerus. No prior. No bony destructive lesion or fracture. No radiopaque foreign material. Procedure Note Aris Delcid MD - 10/11/2017 AP and lateral views right humerus. No prior. No bony destructive lesionor fracture. No radiopaque foreign material. IMPRESSION: No source of pain is identified radiographically. POS - [id number] Edited by: Keren Fleming on 10/11/2017 4:01 PM Ky Wallace MD IMG XR UPPER EXTREMITY F inal Result documented in this encounter Visit Diagnoses Diagnosis Bursitis of right shoulder Bursitis of right shoulder Bursitis of right shoulder documented in this encounter Additional Health Concerns Infection Onset Date Last Indicated Resolved Time CoV-Risk 06/18/2023 06/18/2023 06/29/2023 1:21 AM EST documented as of this encounter Care Teams Counsel Relationship Specialty Start Date End Date Margy Collado MD [address] [place] [address] PCP - General 05/17/17 Celina Stauffer DO [address] [place] [address] [email or web address] Historical LMR Provider 05/16/17 02/21/22 Margy Collado MD [address] [place] [address] [email or web address] Historical LMR Provider 05/16/17 Sarthak Coronel MD, MS [address] [place] [address] [email or web address] Historical LMR Provider 05/16/17 Dean Cardoza MD [address] [place] [address] [email or web address] Primary Oncologist Oncology 02/22/22 documented as of this encounter Additional Source Comments The information contained in this document represents components of the legal health record. It is not the complete legal health record.[facility]
--- OUTSIDE RECORDS SUMMARY | 2025-05-12 16:20 | XMS_ITS | Patient Health Record ---
[facility] Address [address] [facility] [place] [address] Care Team Providers Care Supervisor Benzene Refining Name Role Phone Margy Collado Primary Care Provider Unavailab Tomy Benz Unavailable [phone] Allergies Allergen (clinical drug ingredient) Drug/Non Drug Allergy documented on EMR Reaction Allergy Type Onset Date Status ibuprofen Advil nausea Drug Allergy Active Aleve nausea Drug Allergy Active aspirin Aspirin nausea Drug Allergy Active duloxetine Cymbalta can't walk Drug Allergy Activ e pregabalin Lyrica sleepy Drug Allergy Active Motrin nausea Drug Allergy Active topiramate Topiramate head pain Drug Allergy Activ e Reason For Referral No Information Medications Medication SIG (Take, Route, Frequency, Duration) Notes Start Date End Date Status ProAir HFA Active Omeprazole Active Aspirin 81 MG 1 capsule Orally Onc e a day Active Calcitonin ([place]) Not-Taking Ammonium Lactate 12 % 1 application to affected area Externally to feet Twice a day; Duration: 30 days Active Ativan 0.5 MG 1 tablet at bedtime as needed Orally Once a day PRN Not-Taking CoQ10 400 MG 1 capsule with a jose l l Orally Once a day; Duration: 30 day(s) Active Topamax 50 MG Orally Not-Ta Biotin 7500 Active Percocet 5-325 MG 1 tablet as needed Orally every 6 hrs PRN Not-Taking Montelukast Sodium A ctive Citracal Plus Not-Ta Lidocaine & Adhesive Sheet 5 % (Patch) as directed Externally Active Zetia 5 mg 1 tablet Orally Once a day Not-Taking [place] 3 Active Magnesium Not-Taking Multivitamin Active Anoro Ellipta 62.5-25 MCG/INH Inhalation Once a day Not-Ta lexie Ipratropium [place] Not-Taking Prevagen Not-Taking Gabapentin Not-Takin g Alendronate Sodium A ctive Vitamin C Active Vitamin B12 Active Ambien Not-Taking Vitamin D3 Active Breo Ellipta Not-Andrew ing Jessica PRN Not-Taking Fish Oil Not-Taking Citracal +D3 Not-Andrew ing Flexeril 5 MG 1 tablet Orally Thre e times a day; Duration: 30 day(s) Not-Taking Simvastatin 10 MG 1 tablet in the even ing Orally Once a day; Duration: 30 day(s) Active Plavix Not-Taking Immunizations Vaccine Route Administration Date Status Comme nts Influenza Unknown 04/29/2024 Administered COVID-19 Moderna Vaccine Unknown 06/15/2021 Administered 1st 10/15/20 2nd 11/12/20 Social History Tobacco Use: Social History Observation Description Date Details (start date - stop date) Never Smoker NA - NA Tobacco use other than smoking: Question Answer Notes Are you an other tobacco user? No Tobacco Control (Standard) Question Answer Notes Tobacco use: Nonsmoker Additional Findings: Tobacco non-user Current no nsmoker AUDIT-C (Standard) Question Answer Notes Did you have a drink containing alcohol in the p ast year? No Points 0 Interpretation Negative Problems Problem Type SNOMED Code ICD Code Onset Dates Problem Status W/U Status Risk Notes Problem Plantar wart (67881481) Plantar wart (B07.0) Active confirmed Problem Bilateral atherosclerosis of arteries of lower limbs (disorder) (31220441496531651 ) Atherosclerosis of [place] artery of both lower extremities, with unspecified presence of clinical manifestation (I70.203) Active confirmed Vital Signs Blood pressure diastolic 65 mm Hg 02/03/2025 Height 4 ft 10 in in 02/03/2025 Blood pressure systolic 128 mm Hg 02/03/2025 Weight 103 lbs 02/03/2025 BMI 21.52 kg/m2 02/03/2025 Procedures Procedure Date Ordered Date Performed Result Body Sit e 19168-PCRPGER NAIL, 6 OR MORE 06/10/2024 N/A 56773-Tdvm Destruction, 1-14 06/10/2024 N/A 18756-RHWD SKIN LESIONS, 2 TO 4 06/10/2024 N/A 95320-PGYOIPF NAIL, 6 OR MORE 02/03/2025 N/A 00346-Ojlp Destruction, 1-14 02/03/2025 N/A 50751-UNSI SKIN LESIONS, 2 TO 4 02/03/2025 N/A Encounters Encounter Location Date Provider Diagnosis [address] [address] 06/10/2024 Tomy Messina Atherosclerosis of [place] artery of both lower extremities, with unspecified presence of clinical manifestation I70.203 ; Tinea unguium B35.1 ; Pain in right toe(s) M79.674 ; Pain in left toe(s) M79.675 ; Plantar wart B07.0 and Left foot pain M79.[address] [address] 02/03/2025 Tomy Messina Atherosclerosis of [place] artery of both lower extremities, with unspecified presence of clinical manifestation I70.203 ; Tinea unguium B35.1 ; Pain in right toe(s) M79.674 ; Pain in left toe(s) M79.675 ; Plantar wart B07.0 and Left foot pain M79.[address] [address] 11/04/2024 Tomy Messina Assessments Encounter Date Diagnosis (ICD Code) Assessment Notes Treatment Notes Treatment Clinical Notes Section Notes 06/10/2024 Tinea unguium (ICD-10 - B35.1) 06/10/2024 Atherosclerosis of [place] artery of both lower extremities, with unspecified presence of clinical manifestation (ICD-10 - I70.203) 02/03/2025 Tinea unguium (ICD-10 - B35.1) 02/03/2025 Atherosclerosis of [place] artery of both lower extremities, with unspecified presence of clinical manifestation (ICD-10 - I70.203) 02/03/2025 Pain in right toe(s) (ICD-10 - M79.674) 06/10/2024 Pain in right toe(s) (ICD-10 - M79.674) 06/10/2024 Pain in left toe(s) (ICD-10 - M79.675) 02/03/2025 Pain in left toe(s) (ICD-10 - M79.675) 06/10/2024 Plantar wart (ICD-10 - B07.0) 02/03/2025 Plantar wart (ICD-10 - B07.0) 06/10/2024 Left foot pain (ICD-10 - M79.672) 02/03/2025 Left foot pain (ICD-10 - M79.672) Plan Of Treatment Pending Test Test Name Order Date 11525-PGMXPSV NAIL, 6 OR MORE 06/14/2012 49356-EPSQXZS NAIL, 6 OR MORE 09/27/2012 38944-IGDWRVN NAIL, 6 OR MORE 01/03/2013 80311-YASBEDO NAIL, 6 OR MORE 04/11/2013 42218-KOIFRLU NAIL, 6 OR MORE 07/11/2013 33368-IVERLAJ NAIL, 6 OR MORE 10/21/2013 37334-GTXDXDJ NAIL, 6 OR MORE 02/17/2014 56795-YVXTNBK NAIL, 6 OR MORE 08/04/2014 28606-KVJCZPH NAIL, 6 OR MORE 12/01/2014 62701-MRCCVDP NAIL, 6 OR MORE 05/04/2015 60122-CSFQKDW NAIL, 6 OR MORE 10/01/2015 14507-TKMIQYS NAIL, 6 OR MORE 02/01/2016 84700-JNCTFJT NAIL, 6 OR MORE 06/02/2016 49721-HGECPLW NAIL, 6 OR MORE 09/29/2016 63795-YECRQAG NAIL, 6 OR MORE 03/09/2017 64528-MQHDASI NAIL, 6 OR MORE 07/13/2017 96950-WOXWJEU NAIL, 6 OR MORE 12/25/2017 13457-KKTIHLJ NAIL, 6 OR MORE 07/12/2018 63435-DPANHUO NAIL, 6 OR MORE 01/21/2019 44381-DOFWEUL NAIL, 6 OR MORE 09/19/2019 47352-PSBUUYO NAIL, 6 OR MORE 06/30/2011 23524-LTRPORA NAIL, 6 OR MORE 11/03/2011 18207-OUZVKBE NAIL, 6 OR MORE 03/05/2012 19199-TXHFFUZ NAIL, 6 OR MORE 11/05/2020 36525-ILQKLQA NAIL, 6 OR MORE 09/09/2021 47015-GQFUUNI NAIL, 6 OR MORE 10/24/2022 95416-IXEDBLE NAIL, 6 OR MORE 05/25/2023 70376-XQXMTXE NAIL, 6 OR MORE 12/07/2023 95601-NSZRKIA NAIL, 6 OR MORE 06/10/2024 46697-FLFLORP NAIL, 6 OR MORE 02/03/2025 74921-Zclc Destruction, 1-14 02/03/2025 12366-Ylur Destruction, 1-14 06/10/2024 99565-Zclx Destruction, 1-14 12/07/2023 71526-Umsl Destruction, 1-14 05/25/2023 41999-Mxxa Destruction, 1-14 10/24/2022 44198-Uhyh Destruction, 1-14 09/09/2021 99500-Ftgc Destruction, 1-14 11/05/2020 51689-Ymis Destruction, -14 09/19/2019 43922-Ttsaskfz Plate 03/05/2012 73016-Fsmuukne Plate 11/03/2011 21130- Debride <25 sq cm 04/07/2011 69557-KDUA SKIN LESIONS, 2 TO 4 02/04/20 25 46176-HBAI SKIN LESIONS, 2 TO 4 10/25/19 23 75280-XDDZ SKIN LESIONS, 2 TO 4 05/25/20 23 23468-PDUI SKIN LESIONS, 2 TO 4 12/07/19 24 22235-YUQZ SKIN LESIONS, 2 TO 4 06/10/20 24 Next Appt Details Provider Name:Tomy Messina , 06/09/2025 11:30:00 AM, [address] [place] [address], [phone], Insurance Providers Payer Name Payer Address Payer Phone Subscriber Number Group Number Insured Name Patient Relationship to Insured Coverage Start Date Coverage End Date Medicare National Govt Svcs [employer] [address] [place] [address] [id number] Yamilex Freedman Self - patient is the insured 7 Medical (General) History Medical History History ICD Code stomach ulcer osteoporosis measles joint implants/screws Cholesterol back, hip, knee pain Arthritis Surgical History Surgery Date(Month/Year) back surgery 1986, 1972 bilateral thoracic faucet block 05/16/20 12 colonoscopoy, endoscopy 2011 3 procedures for brain aneurysms 01/2014 tubal ligation 06/2018 oopherectomy 06/2018 Hand Surgery 2020
--- OUTSIDE RECORDS SUMMARY | 2025-05-12 16:20 | XMS_ITS | Encounter Summary ---
Author Organization [facility] Address [address] [place] [address] Phone Care Team Providers Care Director Of Market Research Name Role Phone Celina Stauffer DO Unavailable [phone] Margy Collado MD Unavailable [phone] Sarthak Coronel MD, MS Unavailable [phone] Margy Collado MD Primary Care Provider [phone] Dean Cardoza MD Unavailable [phone] Encounter Details Date Type Department Care Team (Late st Contact Info) Description 10/07/2021 Ancillary Orders Non-Invasive Cardiology [address] [place] [address] Margy Collado MD [address] [place] [address] [email or web address] Chest pain, unspecified type Social History Tobacco [...] NC Stress Result for Nuclear Stress Test (10/07/2021 12:15 PM EST) Max BP Systolic 126 mmHg [facility] Max BP Diastolic 66 mmHg [facility] Max HR 111 BPM [facility] Resting HR 76 BPM [facility] Resting BP Systolic 126 mmHg [facility] Resting BP Diastolic 66 mmHg [facility] Peak METS 1.0 METS [facility] Peak HR 109 BPM [facility] Anatomical Region Laterality Modality Heart Other 10/07/2021 11:2 4 AM EST 10/07/2021 12:14 PM EST Narrative 10/07/2021 12:46 PM EST Response to Stress The patient exercised for minutes seconds, achieving 1.0 METS at peak exercise. Baseline blood pressure was 126/66 mmHg, and baseline heart rate was 76 bpm. The patient achieved a peak heart rate of 109 bpm, which is% of their maximum predicted heart rate. REPORT- 0.4 mg regadenoson (Lexiscan) given IV push over 10 seconds as per protocol immediately followed by injection of Tc99m Sestamibi by nuclear medicine physician. Test was performed as a pharmacological test due to patient's COPD and shortness of breath with inability to exercise on a treadmill to reach MPHR. 1. EKG - Baseline EKG showed sinus rhythm with non-specific ST/T-wave abnormalities and poor R-wave progression. After injection of Lexiscan, there were no ischemic EKG changes. 2. SYMPTOMS - Patient reported 8/10 centralized chest heaviness after injection of Lexiscan which continued three minutes into recovery. 75 mg aminophylline was given with immediate resolution of symptoms. 3. PHYSIOLOGY - Resting HR was 77 bpm. After Lexiscan injection, HR 111 bpm. 4. ARRHYTHMIAS - Rare, isolated PACs and PVCs. Conclusion - No EKG changes suggestive of ischemia. Nuclear images pending and will be reported separately. NIMA Benitez with Dr Beck. us Margy Collado MD CV NM CARDIAC Final Resul t documented in this encounter Visit Diagnoses Diagnosis Chest pain, unspecified type Chest pain, unspecified type documented in this encounter Additional Health Concerns Infection Onset Date Last Indicated Resolved Time CoV-Risk 06/18/2023 06/18/2023 06/29/2023 1:21 AM EST documented as of this encounter Care Teams Director Of Market Research Relationship Specialty Start Date End Date Margy Collado MD [address] [place] [address] [email or web address] PCP - General 05/17/17 Celina Stauffer DO [address] [place] [address] [email or web address] Historical LMR Provider 05/16/17 02/21/22 Margy Collado MD [address] [place] [address] [email or web address] Historical LMR Provider 05/16/17 Sarthak Coronel MD, MS [address] [place] [address] [email or web address] Historical LMR Provider 05/16/17 Dean Cardoza MD [address] [place] [address] [email or web address] Primary Oncologist Oncology 02/22/22 documented as of this encounter Additional Source Comments The information contained in this document represents components of the legal health record. It is not the complete legal health record.[facility]
--- OUTSIDE RECORDS SUMMARY | 2025-05-12 16:20 | XMS_ITS | Encounter Summary ---
Author Organization [facility] Address [address] [place] [address] Phone Care Team Providers Care Commissary Production Supervisor Name Role Phone Margy Collado MD Unavailable [phone] Sarthak Coronel MD, MS Unavailable [phone] Margy Collado MD Primary Care Provider [phone] Dean Cardoza MD Unavailable [phone] Encounter Details Date Type Department Care Team (Late st Contact Info) Description 10/16/2023 Transcribe Orders [facility] [address] [place] [address] Sarthak Coronel MD, MS [address] [id number] [email or web address] Social History Tobacco Use Types Packs/Day Years Used Date Smoking Tobacco: Former Cigarettes 2.5 50 1 957 - 2007 Smokeless Tobacco: Never Alcohol Use Standard Drinks/Week Comments No 0 (1 standard drink = 0.6 oz pur e alcohol) Education Answer Date Recorded Are you interested in more education? Not on kvng e 11/23/2022 Are you concerned about learning? Not on file 11/23/2022 No 11/23/2022 No 11/23/2022 Digital Access Answer Date Recorded No 12/23/2022 No 12/23/2022 Reliable internet access at home? Not on file 12/23/2022 Device with a working camera? Not on file Comments Unknown Sex and Gender Information Value Date Recorded Sex Assigned at Not on file Legal Sex Female 10:08 PM EDT Gender Identity Not on file Sexual Orientation Not on file documented as of this encounter Plan of Treatment Not on file documented as of this encounter Visit Diagnoses Not on filedocumented in this encounter Care Teams Commissary Production Supervisor Relationship Specialty Start Date End Date Margy Collado MD PCP - General 05/17/17 Margy Collado MD Historical LMR Provider 05/16/17 Sarthak Coronel MD, MS [address] [place] [address] Historical LMR Provider 05/16/17 Dean Cardoza MD [address] [place] [address] [email or web address] Primary Oncologist Oncology 02/22/22 documented as of this encounter Additional Source Comments The information contained in this document represents components of the legal health record. It is not the complete legal health record.[facility]
--- OUTSIDE RECORDS SUMMARY | 2025-05-12 16:20 | XMS_ITS | Encounter Summary ---
Author Organization [facility] Address [address] [place] [address] Phone Care Team Providers Care Informatics Nurse Specialist Name Role Phone Celina Stauffer Unavailable [phone] Margy Collado MD Unavailable [phone] Sarthak Coronel MD, MS Unavailable [phone] Margy Collado MD Primary Care Provider Dean Cardoza MD Unavailable Reason for Referral * Outpatient Procedure - Closed Specialty Diagnoses / Procedures Referred By Contac t Referred To Contact Radiology Diagnoses Fracture of one rib, right side, sequela Procedures NM Bone Scan Limited Ky Wallace MD Phone: tel: fax: Referral ID Status Reason Start Date Expiration Date Visits Re quested Visits Authorized [id number] Closed 07/20/2021 07/20/2022 2 2 Encounter Details Date Type Department Care Team (Latest Contact Info) Description 07/20/2021 Transcribe Orders Virtual Department [address] [place] [address] Ky Wallace MD [address] [place] [phone] Fracture of one rib, right side, sequela (Primary Dx) Social History Tobacco Use Types [...] documented as of this encounter Results * NM Bone Scan Limited (08/02/2021 11:50 AM EST) Anatomical Region Laterality Modality Shoulder Right, Shoulder Lef t, Arm Left, Arm Right, Elbow Left, Elbow Right, Forearm Left, Forearm Right, Wrist Right, Wrist Left, Hand Left, Hand Right, Hip Left, Hip Right, Hip Bilateral, Thigh Left, Thigh Right, Knee Left, Knee Right, Knee Bilateral, Leg Left, Leg Right, Ankle Left, Ankle Right, Foot Left, Foot Right, Pelvis Nucle ar Medicine 08/02/2021 12:2 5 PM EST Impressions 08/02/2021 12:27 PM EST No findings to account for right rib pain. Narrative 08/02/2021 12:27 PM EST COMPARISON: Right rib radiograph 08/02/2021. DOSE: 25 mCi Tc99m MDP NUCLEAR MEDICINE LIMITED BONE SCAN FINDINGS: Planar imaging obtained of the ribs. No abnormal rib radiotracer uptake. Thoracolumbar scoliosis. No abnormal soft tissue activity. Normal kidney activity. No abnormal soft tissue activity. Procedure Note Alfred Coppola MD - 08/02/2021 COMPARISON: Right rib radiograph 08/02/2021. DOSE: 25 mCi Tc99m MDP NUCLEAR MEDICINE LIMITED BONE SCAN FINDINGS: Planar imaging obtained of the ribs. No abnormal rib radiotracer uptake. Thoracolumbar scoliosis. No abnormal soft tissue activity. Normal kidney activity. No abnormal soft tissue activity. IMPRESSION: No findings to account for right rib pain. Ky Wallace MD [facility] NM BONE SCAN Final R esult * XR RIBS 2 VIEWS (RIGHT) (08/02/2021 9:28 AM EST) Anatomical Region Laterality Modality Chest Computed Radiogr aphy 08/02/2021 9:30 AM EST Impressions 08/02/2021 9:35 AM EST No rib fracture or other acute bony abnormality apparent. POS - [id number] Narrative 08/02/2021 9:35 AM EST COMPARISON: 08/13/2016 FINDINGS: A total of 3 views were obtained. No discrete rib fracture or zone of cortical irregularity. No abnormal pleural-based opacity. No focal airspace infiltrate. Stable scoliosis. Procedure Note Ramone Viramontes MD - 08/02/2021 COMPARISON: 08/13/2016 FINDINGS: A total of 3 views were obtained. No discrete rib fracture or zone ofcortical irregularity. No abnormal pleural-based opacity. No focalairspace infiltrate. Stable scoliosis. IMPRESSION: No rib fracture or other acute bony abnormality apparent. POS - [id number] us Ky Wallace MD IMG XR CHEST Final Re sult documented in this encounter Visit Diagnoses Diagnosis Fracture of one rib, right side, sequela- Primary Fracture of one rib, right side, sequela Fracture of one rib, right side, sequela documented in this encounter Additional Health Concerns Infection Onset Date Last Indicated Resolved Time CoV-Risk 06/18/2023 06/18/2023 06/29/2023 1:21 AM EST documented as of this encounter Care Teams Informatics Nurse Specialist Relationship Specialty Start Date End Date Margy Collado MD [address] [place] [address] [email or web address] PCP - General 05/17/17 Celina Stauffer DO [address] [place] [address] [email or web address] Historical LMR Provider 05/16/17 02/21/22 [place] [address] [email or web address] Historical LMR Provider 05/16/17 Sarthak Coronel MD, MS [address] [place] [address] [email or web address] Historical LMR Provider 05/16/17 Dean Cardoza MD [address] [place] [address] [email or web address] Primary Oncologist Oncology 02/22/22 documented as of this encounter Additional Source Comments The information contained in this document represents components of the legal health record. It is not the complete legal health record.[facility]
--- OUTSIDE RECORDS SUMMARY | 2025-05-12 16:20 | XMS_ITS | Clinical Summary ---
Author Organization [facility] Address [address] [place] [address] Phone Care Team Providers Care Tire Duster Name Role Phone Margy Collado MD Unavailable [phone] Sarthak Coronel MD, MS Unavailable [phone] Margy Collado MD Primary Care Provider Dean Cardoza MD Unavailable Allergies Active Allergy Reactions Criticality Noted Date Comments Cefadroxil 07/06/2017 Cilostazol Headaches 07/06/2017 Ciprofloxacin 07/06/2017 Codeine Nausea and/or Vomiting 07/06/2017 Ipratropium-Albuterol Other (See Comments) 02/2017 Shaky, loss of balance Duloxetine Dizziness 12/06/2021 Gabapentin Dizziness 12/06/2021 Hydrocodone Bitartrate Rash Low 07/06/2017 Metaxalone Nausea and/or Vomiting 12/06/2021 Ibuprofen Nausea and/or Vomiting 07/06/2017 Other Hives 10/15/2018 SIMMONS Peppers Pregabalin 12/06/2021 Other reaction(s): UNKNOWN Raspberry (Rubus Idaeus) Hives High 10/15/2018 Tiotropium [place] 07/06/2017 Topiramate 06/18/2023 Other reaction(s): head pain Medications simvastatin (ZOCOR) 20 MG tablet Take 20 mg by mouth nightly at bedtime. Active coenzyme Q10 200 mg capsule Take 400 mg by mouth daily. Active ASPIRIN (ASPIR-81 ORAL) Take 81 mg by mouth every other day. Active CALCIUM CITRATE/VITAMIN D3 (CITRACAL + D ORAL) as directed Active albuterol 90 mcg/actuation inhaler 2 puffs as needed Active ascorbic acid, vitamin C, (VITAMIN C) 500 MG tablet 1 tablet Active zolpidem (AMBIEN) 5 MG tablet TAKE 1 TABLET BY MOUTH DAILY AT BEDTIME NEEDED 2 Active ipratropium (ATROVENT) 21 mcg (0.03 %) nasal spray USE 2 SPRAYS IN EACH NOSTRIL THREE TIMES DAILY 2 Active therapeutic multivitamin tablet Take 1 tablet by mouth daily. Active cyanocobalamin, vitamin B-12, 2,[address] 2,500 mcg under the tongue daily. Active montelukast (SINGULAIR) 10 mg tablet Montelukast Sodium Active biotin 10,000 mcg Cap Take 1 capsule by mouth daily. Active alendronate (FOSAMAX) 70 MG tablet Take 70 mg by mouth every 7 days. Active omeprazole (PRILOSEC) 40 MG capsule Take 40 mg by mouth 2 (two) times a day. Active lidocaine (LIDODERM) 5 % Place 1 patch onto the skin daily. 3 Active fluticasone furoate-vilanter oL (BREO ELLIPTA) 200-25 mcg/dose inhalerIndicatio ns:Chronic obstructive pulmonary disease,Pulmonar y emphysema Inhale 1 puff into the lungs daily. 30 each 5 4 Active Active Problems Patient Care Coordination No te Formatting of this note migh t be different from the original. Height 147cm no shoes taken by OC 02/27/2022 Problem Noted Date Diagnosed Date Ex-smoker 07/11/2023 Intracranial aneurysm 07/11/2023 Mononeuropathy of lower extremity 07/11/2023 Osteopenia 07/11/2023 Stenosis of carotid artery 07/11/2023 Amnesia 07/11/2023 Cough 10/22/2020 Assessment & Plan (07/11/2023 12:14 PM EST): I reviewed with her that this is likely multifactorial, and that there likely is not an easy fix for it. I suspect laryngeal tension is a significant contributor. She is already on high-dose PPI therapy for GERD. She is restarting Atrovent nasal spray for vasomotor rhinitis. We will optimize COPD therapies by trying high- dose Trelegy (understanding that she previously had an intolerance to Spiriva, details unclear though not severe per patient). She is not on an ULYSSES inhibitor. Will repeat PFT in 3 months and, if symptoms persist, consider a diagnostic chest CT scan with IV contrast given her extensive smoking history. Assessment & Plan (03/13/2022 12:17 PM EDT): I wonder whether undertreated acid reflux may be contributing to this as she recently switched from twice daily to once daily PPI. She will go back up to twice daily PPI and return to ENT and speech therapy for further evaluation. Assessment & Plan (12/06/2021 9:05 AM EDT): Somewhat improved but persist, likely multifactorial and related to GERD, postnasal drip and COPD/chronic bronchitis. Assessment & Plan (10/22/2020 10:32 AM EDT): I suspect this is multifactorial, primarily related to gastroesophageal reflux and possibly with a component of postnasal drip. She also has underlying obstructive airways disease and is maintained on high-dose Breo. For now, we agreed to a trial of high-dose twice daily PPI. If her diarrhea worsens on this therapy, then she should go back to see her floor person. She will continue on Atrovent and montelukast. I have referred her back to ENT and also referred her to speech therapy. We will obtain a chest x-ray and repeat pulmonary function studies. After all the testing, could consider chest CT scan. Voice disturbance 10/22/2020 Hypertension 10/15/2018 Family history of breast cancer 10/15/2018 Atypical chest pain 09/11/2018 Assessment & Plan (09/11/2018 4:08 PM EST): There is no evidence that this represents a cardiac issue. Her now to negative nuclear stress test is reassuring. He certainly is a candidate to develop disease and I would agree with treating her cholesterol. I have told her that should the pattern or description of her discomfort change that she should be reevaluated. I do not see a need for further workup at this juncture. Her ECG reveals a sinus rhythm at 71 with inferolateral T wave inversions unchanged from previous. 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 Assessment & Plan (12/06/2021 9:05 AM EDT): Continue Singulair and Atrovent. She is currently not on Flonase, could consider restarting this as well if needed. Assessment & Plan (10/22/2020 10:32 AM EDT): Continue Atrovent nasal spray and Singulair. Could consider adding Flonase, azelastine and/or an oral antihistamine. Refer to ENT. Assessment & Plan (06/07/2018 12:27 PM EST): She was started on singulair and flonase at her last visit here 3 months ago, which she has been faithfully taking. Despite this, she has marked sinus congestion and post-nasal drip leading to a chronic cough, worse over the past several weeks. Will refer to ENT for further evaluation of her sinus disease. Assessment & Plan (03/01/2018 3:10 PM EDT): There is an associated post-nasal drip. Will try to start a nasal steroid (if not covered by insurance, can purchase one over the counter) as well as Singulair once daily. Laryngeal muscle tension disorder 10/18/2017 Assessment & Plan (07/11/2023 12:15 PM EST): She has been seen by both ENT and speech therapy. Encouraged her to continue with her exercises. Assessment & Plan (10/18/2017 11:58 AM EDT): Possibly related to GERD. Restart twice a day Omeprazole. If symptoms persist after 2-4 weeks, consider switching inhalers. Gastroesophageal reflux disease 10/18/2017 Assessment & Plan (07/11/2023 12:15 PM EST): Adequate control of reflux symptoms is important in the setting of underlying obstructive lung disease. Continue high-dose twice daily PPI. Assessment & Plan (03/13/2022 12:18 PM EDT): She will increase PPI to twice daily. Assessment & Plan (12/06/2021 9:07 AM EDT): Continue PPI and H2 natasha. Adequate control of reflux symptoms is important in the setting of underlying obstructive lung disease. Assessment & Plan (10/22/2020 10:32 AM EDT): Will initiate trial of high-dose twice daily PPI in addition to H2 natasha. May require return visit to her floor person. Assessment & Plan (06/07/2018 12:27 PM EST): Symptoms well controlled on PPI. Adequate control of reflux symptoms as important in the setting of underlying obstructive lung disease. Assessment & Plan (03/01/2018 3:10 PM EDT): Better controlled on twice daily PPI. Continue this for now. Adequate control of reflux symptoms as important in the setting of underlying obstructive lung disease. Assessment & Plan (10/18/2017 11:56 AM EDT): There is more heartburn and more hoarseness since she came off her PPI. Restart Omeprazole. Chronic obstructive pulmonary disease 07/06/2017 Assessment & Plan (07/11/2023 12:13 PM EST): Given her persistent cough, will try switching from high-dose Breo to high-dose Trelegy. 4 weeks of samples were given. She will call us in 2 to 3 weeks if she is tolerating Trelegy and if it seems to help, and we will send a prescription to her pharmacy. Otherwise, she will call us to let us know she is going back on high- dose Breo. We will repeat PFT in 3 months and reconvene thereafter. Assessment & Plan (03/13/2022 12:17 PM EDT): PFT are stable. We will continue high-dose Breo. Consider repeat annual PFT next January. Assessment & Plan (12/06/2021 9:06 AM EDT): Clinically doing well on high-dose Breo, which we will continue. We will repeat annual PFT in 3 months and reconvene thereafter. I have encouraged her to remain active and use her albuterol inhaler for management of dyspnea, wheezing and chest tightness. Could consider referral to pulmonary rehab if she is interested after repeat PFT and 6-minute walk. Assessment & Plan (10/22/2020 10:32 AM EDT): Continue high-dose Breo for now. Repeat PFT. Assessment & Plan (06/07/2018 12:27 PM EST): Mild, stable and very well controlled on low-dose Breo. She has not required to use her rescue inhaler in the past 3 month. Will continue current inhaler therapy. Assessment & Plan (03/01/2018 3:09 PM EDT): This is mild, and stable compared to last year. She has demonstrated to me over the past few months that she was doing well off all inhalers. That being said, her cough is now back, and I wonder if she wouldn't do better with an inhaler regimen that contains a low-dose inhaled steroid. Will start Breo 100 once daily (rinse mouth after use). STOP Anoro. Continue to use your rescue inhaler as needed only. Flu shot this fall. Assessment & Plan (10/18/2017 11:55 AM EDT): Her post-infectious cough improved with 2 weeks of ICS added to Anoro (switched to Trelegy during that time frame). She is now back on Anoro and doing well from the respiratory standpoint, but has noted more hoarseness. There is also more reflux, and she has been off her Omeprazole for the past several months. We will continue Anoro daily for now. Restart Omeprazole. If still hoarse after 2-4 weeks, would consider trying switching to Stiolto (2 puffs once a day) instead of Anoro. We will repeat PFT in January, annually. She is up to date with the influenza vaccine this season. Assessment & Plan (07/06/2017 12:08 PM EST): COPD appears very well controlled on Anoro, which seems to help. She has noted an increase in productive cough in the past few weeks, which I wonder if it may be related to post-nasal drip (relatred to allergies or recent URI). Continue current inhalers. Start Flonase or another ndbo-aod-bacgemy nasal steroid. See you eye doctor as scheduled, and bring your Anoro with you to show them. Consider repeat PFT next January. Up to date with flu shot this fall. Pulmonary emphysema 07/06/2017 Overview (07/11/2023): A1AT is normal (PiMM). She is no longer smoking. Assessment & Plan (07/06/2017 12:08 PM EST): No longer smoking, and A1AT is normal. Former smoker 07/06/2017 Overview (10/18/2017): Quit in 2008. Resolved Problems Problem Noted Date Diagnosed Date Resolved Date Dyspnea 07/06/2017 03/01/2018 Assessment & Plan (07/06/2017 12:09 PM EST): I suspect this is related to COPD and emphysema. There is no anemia. No ILD seen on CXR. Encounters Date Type Department Care Team Description 05/04/2025 11:00 AM EDT Office Visit [facility] [address] [place] [id number] Ja Lan PA Menard, Angela, OT Acquired trigger finger (Primary Dx); Osteoarthritis of right hand, unspecified osteoarthritis type 04/28/2025 Transcribe Orders [address] [place] [address] Louann Theodore Encounter for rehabilitation (Primary Dx) 04/27/2025 11:00 AM EDT Office Visit [address] [address] Ja Lan PA Menard, Angela, OT Acquired trigger finger (Primary Dx); Osteoarthritis of right hand, unspecified osteoarthritis type 04/21/2025 12:45 PM EDT Office Visit [address] [address] Ja Lan, Juany Ndiaye, OT Acquired trigger finger (Primary Dx); Osteoarthritis of right hand, unspecified osteoarthritis type 04/17/2025 10:45 AM EDT Office Visit [address] [address] Ja Lan PA Menard, Angela, OT Acquired trigger finger (Primary Dx); Osteoarthritis of right hand, unspecified osteoarthritis type 04/13/2025 10:15 AM EDT Office Visit [address] [address] Ja Lan PA Menard, Angela, OT Acquired trigger finger (Primary Dx); Osteoarthritis of right hand, unspecified osteoarthritis type 04/08/2025 11:30 AM EDT Office Visit [address] [address] Ja Lan, Juany Ndiaye, OT Acquired trigger finger (Primary Dx); Osteoarthritis of right hand, unspecified osteoarthritis type 04/08/2025 Plan of Care Documentation [address] [address] 03/31/2025 Transcribe Orders [facility] [address] [place] [address] Louann Theodore Encounter for rehabilitation (Primary Dx) from Last 3 Months Immunizations Immunization Administration Dates Next Due COVID-19 Pfizer Comirnaty Vaccine 12+ 05/15/2023 Influenza High-Dose Quadriva lent Preservative Free IM 04/17/2023,05/02/2022,05/05/2021,04/22 Influenza High-Dose Trivalen t Preservative Free IM 04/29/2019,04/09/2018,03/26/2017,04/24,05/18/2015,05/07/2014 Influenza Quadrivalent Prese rvative Free IM 05/02/2013 Influenza trivalent preserva tive free intradermal 07/08/2012 Pneumococcal conjugate PCV13 03/23/2016 Pneumococcal polysaccharide PPSV23 03/26/2017 RSV Vaccine (bivalent) 05/15/2023 Tdap 03/23/2016 Zoster live 07/08/2012 Zoster recombinant 07/03/2022,,04/18/2019,02/10 Family History Medical History Relation Comments Idiopathic pulmonary fibrosis Brother Breast cancer Mother Breast cancer Sister Relation Status Comments Brother Mother Sister Social History Tobacco Use Types Packs/Day Years Used Date Smoking Tobacco: Former Cigarettes 2.5 50 1 957 - 2006 Smokeless Tobacco: Never Tobacco Cessation:Counseling Given: Not Answered Alcohol Use Standard Drinks/Week Comments No 0 [...] on file Sexual Orientation Not on file Last Filed Vital Signs Vital Sign Reading Time Taken Comments Blood Pressure 114/65 07/11/2023 11:22 AM EST Pulse 88 07/11/2023 11:22 AM EST Temperature 36.2 C (97.2 F) 07/11/2023 11:22 AM EST Respiratory Rate 18 06/18/2023 8:51 AM EST Oxygen Saturation 95% 07/11/2023 11:22 AM EST Inhaled Oxygen Concentration - - Weight 45.8 kg (101 lb) 07/11/2023 11:22 AM EST Height 144.8 cm (4' 9 ) 07/11/2023 11:22 AM EST Body Mass Index 21.86 07/11/2023 11:22 AM EST Plan of Treatment Health Maintenance Due Date Last Done Comments DEPRESSION SCREENING 1957 SMOKING Hx and SMOKELESS TOBACCO SCREENING 1958 HEPATITIS C SCREENING 1963 LIPID PANEL 1963 OSTEOPOROSIS SCREENING INITIAL (ONE-TIME) 2010 BLOOD PRESSURE 01/10/2024 07/11/2023 INFLUENZA VACCINE (#1) 2025 , 05/02/2022, 05/05/2021, Additional history exists COVID-19 VACCINE ( season) 2025 05/15/2023, 05/23/2022, 11/15/2021, Additional history exists Adult Td,Tdap Booster 03/23/2026 03/23/2016 PNEUMOCOCCAL VACCINES (50+ years) Completed 03/26/2017, 03/23/2016 ZOSTER VACCINES Completed 07/03/2022, 09/0 07/2021, 04/18/2019, Additional history exists RSV VACCINE Completed 05/15/2023 HEPATITIS A VACCINES Aged Out No long er eligible based on patient's age to complete this topic HIB VACCINES Aged Out No longer eligi ble based on patient's age to complete this topic MENINGOCOCCAL VACCINES (ACWY) Aged Out No longer eligible based on patient's age to complete this topic MENINGOCOCCAL VACCINES (B) Aged Out N o longer eligible based on patient's age to complete this topic Medical Devices Not on file Insurance MEDICARE PART A & [facility] & B [facility] B [facility]IC[facility] PART A & B [place] [facility] PART [facility] & B [facility] & [facility] & [place] A & B [facility] Care Teams Tire Duster Relationship Specialty Start Date End Date Margy Collado MD PCP - General 05/17/17 Margy Collado MD Historical LMR Provider 05/16/17 Sarthak Coronel MD, MS [address] [place] [address] [id number] Historical LMR Provider 05/16/17 Dean Cardoza MD [address] [place], [place] [id number] [email or web address] Primary Oncologist Oncology 02/22/22 Additional Source Comments The information contained in this document represents components of the legal health record. It is not the complete legal health record.[facility]
--- OUTSIDE RECORDS SUMMARY | 2025-05-12 16:21 | XMS_ITS | Encounter Summary ---
Author Organization [facility] Address [address] [place] [phone] Phone Care Team Providers Care Credit Control Manager Name Role Phone Celina Stauffer Unavailable [phone] Margy Collado MD Unavailable [phone] Sarthak Coronel MD, MS Unavailable [phone] Margy Collado MD Primary Care Provider [phone] Dean Cardoza MD Unavailable Encounter Details Date Type Department Care Team (Late st Contact Info) Description 11/08/2021 Procedure Pass [facility], [address] [address] Social History Tobacco Use Types Packs/Day Years [...] documented as of this encounter Care Teams Credit Control Manager Relationship Specialty Start Date End Date Margy Collado MD [address] [place] [address] [email or web address] PCP - General 05/17/17 Celina Stauffer DO [address] [place] [address] [email or web address] Historical LMR Provider 05/16/17 02/21/22 Margy Collado MD [address] [place] [address] [email or web address] Historical LMR Provider 05/16/17 Sarthak Coronel MD, MS [address] [place] [id number] [email or web address] Historical LMR Provider 05/16/17 Dean Cardoza MD [address] [place] [address] [email or web address] Primary Oncologist Oncology 02/22/22 documented as of this encounter Additional Source Comments The information contained in this document represents components of the legal health record. It is not the complete legal health record.[facility]
--- OUTSIDE RECORDS SUMMARY | 2025-05-12 16:21 | XMS_ITS | Encounter Summary ---
Author Organization [facility] Address [address] [place] [phone] Phone Care Team Providers Care Microsoft Windows Engineer Name Role Phone Celina Stauffer DO Unavailable [phone] Margy Collado MD Unavailable [phone] Sarthak Coronel MD, MS Unavailable [phone] Margy Collado MD Primary Care Provider [phone] Dean Cardoza MD Unavailable Reason for Referral * MRI/CAT Scan - Closed Specialty Diagnoses / Procedures Referred By Contac t Referred To Contact Radiology Diagnoses Other specified symptoms and signs involving the circulatory and respiratory systems Procedures MRI Angio Brain Margy Collado MD [address] [place] [address] Phone: tel: fax: mailto: Referral ID Status Reason Start Date Expiration Date Visits Re quested Visits Authorized [id number] Closed 11/08/2021 11/08/2022 1 1 Encounter Details Date Type Department Care Team (Late st Contact Info) Description 11/08/2021 Transcribe Orders Virtual Department [address] [place] [phone] Margy Collado MD [address] [place] [address] [phone] Other specified symptoms and signs involving the circulatory and respiratory systems (Primary Dx) Social History Tobacco Use Types [...] documented as of this encounter Results * MRA HEAD WITHOUT CONTRAST (11/30/2021 1:31 PM EDT) Anatomical Region Laterality Modality Head Magnetic Resonan ce 11/30/2021 4:30 PM EDT Impressions 11/30/2021 4:35 PM EDT No evidence of residual/recurrent left NATALIYA aneurysm nor any new vascular pathology. POS [id number] Narrative 11/30/2021 4:35 PM EDT TECHNIQUE: 1.5 Kaur scanner. Nonenhanced exam. Compare to similar study 09/28/2013. FINDINGS: Although there is some artifact from coils in the distal left NATALIYA, there is no evidence of residual or recurrent aneurysm where the 4 mm fusiform aneurysm was seen in 2013. No new aneurysm has become apparent in either anterior or posterior circulation. No occlusion or significant stenosis. No signs of dissection. No gross vascular malformations. No significant developmental variant anatomy. Procedure Note Tristin Cali MD - 11/30/2021 TECHNIQUE: 1.5 Kaur scanner. Nonenhanced exam. Compare to similar study 09/28/2013. FINDINGS: Although there is some artifact from coils in the distal left NATALIYA, thereis no evidence of residual or recurrent aneurysm where the 4 mm fusiformaneurysm was seen in 2013. No new aneurysm has become apparent in either anterior or posteriorcirculation. No occlusion or significant stenosis. No signs of dissection. No gross vascular malformations. No significant developmental variant anatomy. IMPRESSION: No evidence of residual/recurrent left NATALIYA aneurysm nor any new vascularpathology. POS [id number] Margy Collado MD IMG MR HEAD/NECK Final Resu lt documented in this encounter Visit Diagnoses Diagnosis Other specified symptoms and signs involving the circulatory and respiratory systems- Primary Other specified symptoms and signs involving the circulatory and respiratory systems documented in this encounter Additional Health Concerns Infection Onset Date Last Indicated Resolved Time CoV-Risk 06/18/2023 06/18/2023 06/29/2023 1:21 AM EST documented as of this encounter Care Teams Microsoft Windows Engineer Relationship Specialty Start Date End Date Margy Collado MD [address] [place] [address] [email or web address] PCP - General 05/17/17 Celina Stauffer DO [address] [place] [address] [email or web address] Historical LMR Provider 05/16/17 02/21/22 Margy Collado MD [address] [place] [address] [email or web address] Historical LMR Provider 05/16/17 Sarthak Coronel MD, MS [address] [place] [id number] [email or web address] Historical LMR Provider 05/16/17 Dean Cardoza MD [address] [place] [address] [email or web address] Primary Oncologist Oncology 02/22/22 documented as of this encounter Additional Source Comments The information contained in this document represents components of the legal health record. It is not the complete legal health record.[facility]
--- OUTSIDE RECORDS SUMMARY | 2025-05-12 16:21 | XMS_ITS | Encounter Summary ---
Author Organization [facility] Address [address] [place] [address] Phone Care Team Providers Care Engineering Job Titles Name Role Phone Celina Stauffer Unavailable [phone] Margy Collado MD Unavailable [phone] Sarthak Coronel MD, MS Unavailable [phone] Margy Collado MD Primary Care Provider [phone] Dean Cardoza MD Unavailable Encounter Details Date Type Department Care Team (Late st Contact Info) Description 06/13/2017 Ancillary Orders [facility] [place] - [address] [address] Ky Wallace MD [address] [place] [phone] Pain in thoracic spine Social History Tobacco Use Types Packs/Day Years Used Date Smoking Tobacco: Never Assessed Comments Unknown Sex and Gender Information Value Date Recorded Sex Assigned at Not on file Legal Sex Female 10:08 PM EDT Gender Identity Not on file Sexual Orientation Not on file documented as of this encounter Plan of Treatment Not on file documented as of this encounter Results * XR RIBS 2 VIEWS (RIGHT) (06/13/2017 3:52 PM EST) Anatomical Region Laterality Modality Chest Radiographic Veronica ging 06/13/2017 4:15 PM EST Impressions 06/13/2017 4:20 PM EST No clear explanation for pain. POS - [id number] Narrative 06/13/2017 4:20 PM EST HISTORY: Pain. COMPARISON: Chest x-ray 04/11/2017. FINDINGS: Five views. No evidence of acute fractures. No evidence of suspicious lytic or blastic lesions within the bones. No other significant changes. Procedure Note Cameron Lenz MD - 06/13/2017 HISTORY: Pain. COMPARISON: Chest x-ray 04/11/2017. FINDINGS: Five views. No evidence of acute fractures. No evidence of suspicious lytic orblastic lesions within the bones. No other significant changes. IMPRESSION: No clear explanation for pain. POS - [id number] Ky Wallace MD IMG XR CHEST Final Re sult documented in this encounter Visit Diagnoses Diagnosis Pain in thoracic spine Pain in thoracic spine documented in this encounter Additional Health Concerns Infection Onset Date Last Indicated Resolved Time CoV-Risk 06/18/2023 06/18/2023 06/29/2023 1:21 AM EST documented as of this encounter Care Teams Engineering Job Titles Relationship Specialty Start Date End Date Margy Collado MD [address] [place] [address] PCP - General 05/17/17 Celina Stauffer DO [address] [place] [address] [email or web address] Historical LMR Provider 05/16/17 02/21/22 Margy Collado MD [address] [place] [address] Historical LMR Provider 05/16/17 Sarthak Coronel MD, MS [address] [place] [address] [email or web address] Historical LMR Provider 05/16/17 Dean Cardoza MD [address] [place] [address] [email or web address] Primary Oncologist Oncology 02/22/22 documented as of this encounter Additional Source Comments The information contained in this document represents components of the legal health record. It is not the complete legal health record.[facility]
--- OUTSIDE RECORDS SUMMARY | 2025-05-12 16:21 | XMS_ITS | Encounter Summary ---
Author Organization [facility] Address [address] [place] [address] Phone Care Team Providers Care Diagram Clerk Name Role Phone Celina Stauffer Unavailable [phone] Margy Collado MD Unavailable [phone] Sarthak Coronel MD, MS Unavailable [phone] Margy Collado MD Primary Care Provider [phone] Dean Cardoza MD Unavailable [phone] Reason for Referral * Physical Therapy (Routine) - Closed Specialty Diagnoses / Procedures Referred By Contalfred t Referred To Contact Physical Therapy Diagnoses Encounter for rehabilitation System, Provider Not In, PhD [address] [address] Phone: tel: Referral ID Status Reason Start Date Expiration Date Visits Re quested Visits Authorized [id number] Closed 06/20/2017 06/20/2018 99 99 Encounter Details Date Type Department Care Team (Latest Contact Info) Description 06/20/2017 Transcribe Orders [facility] [address] [place] [address] [phone] Ky Wallace MD [address] [place] [address] [phone] Encounter for rehabilitation (Primary Dx) Social History Tobacco Use Types Packs/Day Years Used Date Smoking Tobacco: Never Assessed Comments Unknown Sex and Gender Information Value Date Recorded Sex Assigned at Not on file Legal Sex Female 10:08 PM EDT Gender Identity Not on file Sexual Orientation Not on file documented as of this encounter Plan of Treatment Scheduled Referrals Name Type Priority Associated Diagnoses Orde r Schedule Ambulatory referral to [facility] Physical Therapy Outpatient Referral Routine Encounter for rehabilitation Ordered: 06/20/2017 documented as of this encounter Visit Diagnoses Diagnosis Encounter for rehabilitation- Primary documented in this encounter Additional Health Concerns Infection Onset Date Last Indicated Resolved Time CoV-Risk 06/18/2023 06/18/2023 06/29/2023 1:21 AM EST documented as of this encounter Care Teams Diagram Clerk Relationship Specialty Start Date End Date Margy Collado MD [address] [place] [address] [email or web address] PCP - General 05/17/17 Celina Stauffer DO [address] [place] [address] [email or web address] Historical LMR Provider 05/16/17 02/21/22 Margy Collado MD [address] [place] [address] [email or web address] Historical LMR Provider 05/16/17 Sarthak Coronel MD, MS [address] [place] [address] [email or web address] Historical LMR Provider 05/16/17 Dean Cardoza MD [address] [place] [address] [email or web address] Primary Oncologist Oncology 02/22/22 documented as of this encounter Additional Source Comments The information contained in this document represents components of the legal health record. It is not the complete legal health record.[facility]
--- OUTSIDE RECORDS SUMMARY | 2025-05-12 16:21 | XMS_ITS | Encounter Summary ---
Author Organization [facility] Address [address] [place] [address] Phone Care Team Providers Care Floral Manager Name Role Phone Celina Stauffer Unavailable [phone] Margy Collado MD Unavailable [phone] Sarthak Coronel MD, MS Unavailable [phone] Margy Collado MD Primary Care Provider Dean Cardoza MD Unavailable Reason for Referral * MRI/CAT Scan - Closed Specialty Diagnoses / Procedures Referred By Contac t Referred To Contact Radiology Diagnoses Chest pain, unspecified type Procedures NC Myocardial Perfusion Exercise Multiple Margy Collado MD [address] [place] [address] Phone: tel: fax: [email or web address] Referral ID Status Reason Start Date Expiration Date Visits Re quested Visits Authorized [id number] Closed 09/21/2021 09/21/2022 4 4 Encounter Details Date Type Department Care Team (Late st Contact Info) Description 09/21/2021 Transcribe Orders Virtual Department [address] [place] [address] Margy Collado MD [address] [place] [address] [phone] [email or web address] Chest pain, unspecified type (Primary Dx) Social [...] Results * NC Myocardial Perfusion Exercise Multiple (10/07/2021 12:37 PM EST) Anatomical Region Laterality Modality Heart, Vascular Nuclear Medicine 10/07/2021 1:08 PM EST Impressions 10/07/2021 1:11 PM EST No ischemia or infarction. Normal ejection fraction of 82%. Narrative 10/07/2021 1:11 PM EST COMPARISON: 07/26/2018. DOSE: 9.9 mCi at rest and 26.9 mCi at stress of Tc99m Sestamibi TECHNIQUE: Patient underwent a pharmacologic stress test. No ischemic EKG changes. The patient had 8/10 chest heaviness. This resolved with IV Aminophyllin. NUCLEAR MEDICINE CARDIAC SPECT FINDINGS: Left ventricle is normal in size from stress to rest. No perfusion defects. Normal wall motion and thickening with an LVEF of 82%. T.I.D. Ratio: 1.21 Procedure Note Alfred Coppola MD - 10/07/2021 COMPARISON: 07/26/2018. DOSE: 9.9 mCi at rest and 26.9 mCi at stress of Tc99m Sestamibi TECHNIQUE: Patient underwent a pharmacologic stress test. No ischemic EKGchanges. The patient had 8/10 chest heaviness. This resolved with IVAminophyllin. NUCLEAR MEDICINE CARDIAC SPECT FINDINGS: Left ventricle is normal in size from stress to rest. No perfusiondefects. Normal wall motion and thickening with an LVEF of 82%. T.I.D. Ratio: 1.21 IMPRESSION: No ischemia or infarction. Normal ejection fraction of 82%. Margy Collado MD CV NM CARDIAC Final Resul t documented in this encounter Visit Diagnoses Diagnosis Chest pain, unspecified type- Primary Chest pain, unspecified type documented in this encounter Additional Health Concerns Infection Onset Date Last Indicated Resolved Time CoV-Risk 06/18/2023 06/18/2023 06/29/2023 1:21 AM EST documented as of this encounter Care Teams Floral Manager Relationship Specialty Start Date End Date Margy Collado MD [address] [place] [address] [email or web address] PCP - General 05/17/17 Celina Stauffer DO [address] [place] [address] [email or web address] Historical LMR Provider 05/16/17 02/21/22 Margy Collado MD [address] [place] [address] [email or web address] Historical LMR Provider 05/16/17 Sarthak Coronel MD, MS [address] [place] [address] [email or web address] Historical LMR Provider 05/16/17 Dean Cardoza MD [address] [place] [address] [email or web address] Primary Oncologist Oncology 02/22/22 documented as of this encounter Additional Source Comments The information contained in this document represents components of the legal health record. It is not the complete legal health record.[facility]
== END 2025-05-12 13:29 | disposition home or self-care (01) ==
LOC: HO.MAMMO 13:28
PROVIDERS: PCP Family Medicine; Visit Provider Family Medicine
DX: Z12.31 Encounter for screening mammogram for malignant neoplasm of breast (principal)
CPT/HCPCS: 77063; 77067

== ENCOUNTER → 2025-05-12 13:45 | Outpatient (BNV) | payer MEDICARE, MEDICAID, SELFPAY | PROVIDERS: PCP Family Medicine; Visit Provider Radiology Body Imaging | DX: Z12.31 Encounter for screening mammogram for malignant neoplasm of breast (principal) | CPT/HCPCS: 77063; 77067 ==